=== PATIENT | male | born 1930 | race Caucasian/White ===

== ENCOUNTER 2020-02-12 17:03 | Inpatient (IN) | payer MEDICARE, BC ==
[~2020-02-12] VITALS: Ht 167.6 cm; Wt 62.1 kg
[2020-02-12] MEDS ORDERED: DEXAMETHASONE SOD PHOSPHATE 4 MG INJ IV ONE (17:30)
[2020-02-12] MEDS ORDERED: CEFTRIAXONE 1 G in IV DEXTROSE 5% 50 ML IV ONE (17:45)
[2020-02-12] MEDS ORDERED: AZITHROMYCIN IV 500 MG in IV DEXTROSE 5% 250 ML IV ONE (17:45)
[2020-02-12 18:10] LABS: CREATININE 1.1 mg/dL (0.6-1.3); POTASSIUM 4.3 mmol/L (3.5-5.1)
--- NOTE | 2020-02-12 18:13 | NUR ---
PT [facility] ROOM #1B. DR GRIFFITH EVALUATED THE PT.
[2020-02-12 18:14] LABS: BASOPHILS % (AUTO) 0.1 % (0.0-2.0); EOSINOPHILS % (AUTO) 0.1 % (0.0-7.0); HEMATOCRIT 35.4 % (36.7-47.1); LYMPHOCYTES # (AUTO) 0.3 K/uL (20.0-40.0); LYMPHOCYTES % (AUTO) 4.3 % (20.5-51.5); MEAN CORPUSCULAR HEMOGLOBIN 30.5 uug (23.8-33.4); MEAN CORPUSCULAR HGB CONC 34 g/dL (32.5-36.3); MEAN CORPUSCULAR VOLUME 89.8 fL (73.0-96.2); MONOCYTES # (AUTO) 0.2 K/uL (2.0-10.0); NEUTROPHILS # (AUTO) 7.6 K/uL (1.8-8.9); NEUTROPHILS % (AUTO) 93.5 % (38.5-71.5); PLATELET COUNT (AUTO) 82 K/uL (152-348); RED BLOOD CELL COUNT(AUTO) 3.94 MIL/uL (4.06-5.63); WHITE BLOOD COUNT (AUTO) 8.2 K/uL (3.6-10.2)
[2020-02-12 18:28] LABS: BILIRUBIN,TOTAL 1.1 mg/dL (0.2-1.0); TOTAL PROTEIN, SERUM 6.6 g/dL (6.4-8.2)
[2020-02-12] MEDS ORDERED: CEFTRIAXONE /D5W 50ML IVPB **ER PYXIS IV ONE (18:37)
[2020-02-12] MEDS ORDERED: DEXAMETHASONE SOD PHOSPHATE 10 MG INJ ONE (18:37)
--- NOTE | 2020-02-12 19:30 | NUR ---
recieved patient in shift change from Anibal SINGH
[2020-02-12] MEDS ORDERED: AZITHROMYCIN 500MG/ D5W 250ML IVPB **ER PYXIS ONLY IV ONE (19:45)
[2020-02-12 22:57] LABS: BAND % (MANUAL) 2 % (0-10); LYMPHOCYTES % (MANUAL) 4 % (20-40); MONOCYTES % (MANUAL) 3 % (2-10); NEUTROPHILS % (MANUAL) 91 % (42-75)
--- NOTE | 2020-02-13 | NUR ---
NO signs of acute distress noted, patient noted on 4 liters nasal cannula saturating at 92%
--- NOTE | 2020-02-13 05:11 | NUR ---
Patient noted resting at this time, all needs met
--- NOTE | 2020-02-13 08:00 | NUR ---
Pt eating breakfast, NAD noted. Pending tele admission when bed available.
[2020-02-13] MEDS ORDERED: ALBUTEROL SULFATE 8 GM HFA.AER.AD IH PRN (09:00)
[2020-02-13] MEDS ORDERED: MORPHINE SULFATE 2 MG/1 ML DISP.SYRIN IV PRN (09:00)
[2020-02-13] MEDS ORDERED: ENOXAPARIN SODIUM 40 MG/0.4 ML DISP.SYRIN SQ SCH (09:00)
[2020-02-13] MEDS ORDERED: ONDANSETRON 4 MG/2 ML VIAL IV PRN (09:00)
[2020-02-13] MEDS ORDERED: DEXAMETHASONE SOD PHOSPHATE 10 MG INJ ONE (09:24)
[2020-02-13] MEDS ORDERED: CEFTRIAXONE /D5W 50ML IVPB **ER PYXIS IV ONE (09:24)
[2020-02-13] MEDS ORDERED: AZITHROMYCIN 500MG/ D5W 250ML IVPB **ER PYXIS ONLY IV ONE (09:24)
--- NOTE | 2020-02-13 10:00 | NUR ---
emar showed Rocephin 1mg IV, Zithromax 500mg IV, Decadron 6mg IV and Lovenox 40mg sq due at 0900. Decadron adm at 0900 Lovenox adm at 0900 Rocephin 1gm: started at 0900 via saline lock Rt upper arm and completed at 0930. Zithromax 500mg IV started at 0900 via saline lock Rt upper arm. When I came back to nursing station to chart the meds, they were not on the emar. Spoke to Sue in pharmacy who stated she had verified the meds and changed the times.
--- NOTE | 2020-02-13 12:00 | NUR ---
Pt eating lunch, NAD noted.
[2020-02-13 13:14] LABS: BASOPHILS # (AUTO) 0.1 K/uL (0.0-8.0); BASOPHILS % (AUTO) 1.2 % (0.0-2.0); EOSINOPHILS % (AUTO) 0.1 % (0.0-7.0); HEMATOCRIT 35.4 % (36.7-47.1); LYMPHOCYTES # (AUTO) 0.5 K/uL (20.0-40.0); LYMPHOCYTES % (AUTO) 4.3 % (20.5-51.5); MEAN CORPUSCULAR HEMOGLOBIN 30.4 uug (23.8-33.4); MEAN CORPUSCULAR HGB CONC 34 g/dL (32.5-36.3); MEAN CORPUSCULAR VOLUME 89.9 fL (73.0-96.2); MONOCYTES # (AUTO) 0.6 K/uL (2.0-10.0); MONOCYTES % (AUTO) 4.5 % (0.0-11.0); NEUTROPHILS # (AUTO) 11.1 K/uL (1.8-8.9); NEUTROPHILS % (AUTO) 89.9 % (38.5-71.5); PLATELET COUNT (AUTO) 96 K/uL (152-348); RED BLOOD CELL COUNT(AUTO) 3.94 MIL/uL (4.06-5.63); WHITE BLOOD COUNT (AUTO) 12.3 K/uL (3.6-10.2)
[2020-02-13 13:18] LABS: POTASSIUM 4.1 mmol/L (3.5-5.1)
[2020-02-13 13:27] LABS: THYROID STIMULATING HORMONE 0.785 mIU/mL (0.358-3.740)
[2020-02-13 13:55] LABS: BILIRUBIN,TOTAL 0.6 mg/dL (0.2-1.0); PHOSPHOROUS 2.4 mg/dL (2.5-4.9)
[2020-02-13 14:07] LABS: TOTAL PROTEIN, SERUM 6.5 g/dL (6.4-8.2)
[2020-02-13] MEDS ORDERED: NEUTRA PHOS PACKET PO ONE (17:00)
[2020-02-13] MEDS ORDERED: DEXAMETHASONE SOD PHOSPHATE 10 MG INJ IV SCH (17:00)
[2020-02-13] MEDS ORDERED: IOHEXOL 350 100 ML INFUS..BTL ONE (19:41)
[2020-02-13] MEDS ORDERED: IV NORMAL SALINE 250 ML IV ONE (19:41)
[2020-02-13] MEDS ORDERED: SWABABLE VALVE TRANSFER SET EA MC ONE (19:41)
[2020-02-13] MEDS ORDERED: REMDESIVIR (CHARGED) 200 MG in IV NORMAL SALINE 210 ML IV ONE (20:00)
[2020-02-13] MEDS ORDERED: DOCUSATE SODIUM 250 MG CAPSULE PO SCH (21:00)
[2020-02-13] MEDS ORDERED: ENOXAPARIN SODIUM 60 MG/0.6 ML DISP.SYRIN SQ SCH (21:00)
[2020-02-13] MEDS: DOCUSATE SODIUM 100 MG CAPSULE PO SCH (21:55)
[2020-02-13] MEDS ORDERED: DOCUSATE SODIUM 100 MG CAPSULE PO ONE (21:58)
[2020-02-13] MEDS ORDERED: ENOXAPARIN SODIUM 60 MG/0.6 ML DISP.SYRIN SQ ONE (21:58)
--- NOTE | 2020-02-13 22:28 | NUR ---
Eliza Gamez paged at this time for new orders
[2020-02-13] MEDS ORDERED: HEPARIN/D5W DRIP 500 ML IV PRN (22:45)
--- NOTE | 2020-02-13 22:53 | NUR ---
POsitive covid status unverified a this time, remdesivir held at this time
[2020-02-13] MEDS ORDERED: HEPARIN/D5W DRIP 500 ML ONE (23:02)
[2020-02-13] MEDS ORDERED: HEPARIN SODIUM,PORCINE 5,000 UNITS/ML VIAL ONE (23:35)
--- NOTE | 2020-02-13 23:40 | NUR ---
Heparin drip started at this time per SALES REPRESENTATIVE [employer] SERVICE elma Montalvo orders for right sided pulmonary emboli patient's weight noted at 63 Kg, 65Kg protocol followed patient bolused 5000 units of heparin, heparin protocol intiated at 1150 units/hr
[2020-02-14 00:18] LABS: LYMPHOCYTES % (MANUAL) 5 % (20-40); MONOCYTES % (MANUAL) 5 % (2-10); NEUTROPHILS % (MANUAL) 90 % (42-75)
--- NOTE | 2020-02-14 01:32 | NUR ---
PTT lab order placed for 02/14/2020 at 0512
--- NOTE | 2020-02-14 05:40 | NUR ---
Lab noted drawing blood at this time
[2020-02-14 05:47] LABS: BASOPHILS # (AUTO) 0.1 K/uL (0.0-8.0); BASOPHILS % (AUTO) 0.5 % (0.0-2.0); HEMATOCRIT 35.5 % (36.7-47.1); HEMOGLOBIN 12.2 g/dL (12.5-16.3); LYMPHOCYTES # (AUTO) 0.7 K/uL (20.0-40.0); LYMPHOCYTES % (AUTO) 4.7 % (20.5-51.5); MEAN CORPUSCULAR HEMOGLOBIN 30.7 uug (23.8-33.4); MEAN CORPUSCULAR HGB CONC 34 g/dL (32.5-36.3); MEAN CORPUSCULAR VOLUME 89.4 fL (73.0-96.2); MONOCYTES # (AUTO) 0.8 K/uL (2.0-10.0); NEUTROPHILS # (AUTO) 13.4 K/uL (1.8-8.9); NEUTROPHILS % (AUTO) 89.8 % (38.5-71.5); PLATELET COUNT (AUTO) 128 K/uL (152-348); RED BLOOD CELL COUNT(AUTO) 3.97 MIL/uL (4.06-5.63); WHITE BLOOD COUNT (AUTO) 14.9 K/uL (3.6-10.2)
[2020-02-14 06:02] LABS: BILIRUBIN,DIRECT 0.2 mg/dL (0.0-0.2); BILIRUBIN,TOTAL 0.7 mg/dL (0.2-1.0); TOTAL PROTEIN, SERUM 6.3 g/dL (6.4-8.2)
[2020-02-14 06:35] LABS: CREATININE 1.2 mg/dL (0.6-1.3); MAGNESIUM 1.9 mg/dL (1.8-2.4); PHOSPHOROUS 3.9 mg/dL (2.5-4.9); POTASSIUM 4.4 mmol/L (3.5-5.1)
--- NOTE | 2020-02-14 06:35 | NUR ---
Patient's PTT noted at 126.1 Per heparin dosing protocol for none acute coronary syndromes Heparin stopped at 0630 and will be resumed at 0730 and decrease drip by 3 units/Kg/h Will endorse orders to dayshift RN
--- NOTE | 2020-02-14 07:30 | NUR ---
Heparin restarted at 945 Units/hr (63kg x 15 Units) at 0730
[2020-02-14] MEDS ORDERED: PANTOPRAZOLE SODIUM 40 MG TABLET.DR PO ONE (07:56)
[2020-02-14] MEDS ORDERED: DEXAMETHASONE SOD PHOSPHATE 4 MG INJ ONE (07:56)
[2020-02-14] MEDS ORDERED: DOCUSATE SODIUM 100 MG CAPSULE PO ONE (07:56)
--- NOTE | 2020-02-14 09:00 | NUR ---
Pt given Breakfast tray. No current complaints, no distress noted. Pt desaturates to 60'2-70's when he pulls mask off (eg eating), but climbs back to mid 90's when replaced.
[2020-02-14] MEDS ORDERED: AZITHROMYCIN 500MG/ D5W 250ML IVPB **ER PYXIS ONLY IV ONE (09:07)
[2020-02-14] MEDS ORDERED: CEFTRIAXONE /D5W 50ML IVPB **ER PYXIS IV ONE (09:08)
[2020-02-14] MEDS: PANTOPRAZOLE SODIUM 40 MG TABLET.DR PO SCH (09:10)
[2020-02-14] MEDS: DEXAMETHASONE SOD PHOSPHATE 10 MG INJ IV SCH (09:25)
[2020-02-14] MEDS: CEFTRIAXONE 1 G in IV DEXTROSE 5% 50 ML IV SCH (09:25)
[2020-02-14] MEDS: DOCUSATE SODIUM 100 MG CAPSULE PO SCH (09:27)
[2020-02-14 09:44] LABS: ABG BASE EXCESS -2.1 mmol/L; ABG HCO3 20.4 mmol/L; ABG PCO2 28.1 mmHg (35.0-45.0); ABG PH 7.478 (7.350-7.450); ABG PO2 72.6 mmHg (75.0-100.0); ABG SITE RIGHT RADIAL; ABG TOTAL HEMOGLOBIN 11.9 G/dL (13.5-18.0); COHb 0.9 % (0.5-1.5); MetHb 0.2 % (0.0-1.5); O2Hb 93.9 % (94.0-97.0)
--- NOTE | 2020-02-14 09:45 | NUR ---
Son, Terry, wants attending MD/SALES CENTER ASSOCIATE to call him at [phone].
[2020-02-14] MEDS: AZITHROMYCIN IV 500 MG in IV DEXTROSE 5% 250 ML IV SCH (10:16)
--- NOTE | 2020-02-14 11:55 | NUR ---
Heparin Drip Stopped, per LION HUNTER.
--- NOTE | 2020-02-14 16:00 | NUR ---
Pt resting in bed, no complaints, no distress noted.
[2020-02-14] MEDS ORDERED: REMDESIVIR (CHARGED) 100 MG in IV NORMAL SALINE 230 ML IV SCH (18:00)
--- NOTE | 2020-02-14 19:14 | NUR ---
recieved patient in shift report
[2020-02-14] MEDS ORDERED: ENOXAPARIN SODIUM 60 MG/0.6 ML DISP.SYRIN SQ ONE (19:27)
[2020-02-14] MEDS ORDERED: REMDESIVIR (CHARGED) 100 MG in IV NORMAL SALINE 100 ML IV ONE ×2 (20:00→21:00)
[2020-02-14] MEDS ORDERED: REMDESIVIR (CHARGED) 100 MG in IV NORMAL SALINE 100 ML IV SCH (20:00)
[2020-02-14] MEDS: ENOXAPARIN SODIUM 60 MG/0.6 ML DISP.SYRIN SQ SCH (20:01)
--- NOTE | 2020-02-15 00:07 | NUR ---
Patient noted resting in bed, vitals WNLs at this time
[2020-02-15 06:33] LABS: BASOPHILS % (AUTO) 0.3 % (0.0-2.0); EOSINOPHILS % (AUTO) 0.1 % (0.0-7.0); HEMATOCRIT 38.1 % (36.7-47.1); HEMOGLOBIN 13.4 g/dL (12.5-16.3); LYMPHOCYTES # (AUTO) 0.5 K/uL (20.0-40.0); LYMPHOCYTES % (AUTO) 5.8 % (20.5-51.5); MEAN CORPUSCULAR HEMOGLOBIN 33.6 uug (23.8-33.4); MEAN CORPUSCULAR HGB CONC 35 g/dL (32.5-36.3); MEAN CORPUSCULAR VOLUME 95.7 fL (73.0-96.2); MONOCYTES # (AUTO) 0.4 K/uL (2.0-10.0); NEUTROPHILS # (AUTO) 7.6 K/uL (1.8-8.9); NEUTROPHILS % (AUTO) 88.8 % (38.5-71.5); PLATELET COUNT (AUTO) 135 K/uL (152-348); RED BLOOD CELL COUNT(AUTO) 3.98 MIL/uL (4.06-5.63); WHITE BLOOD COUNT (AUTO) 8.5 K/uL (3.6-10.2)
[2020-02-15 06:44] LABS: BILIRUBIN,DIRECT 0.3 mg/dL (0.0-0.2); BILIRUBIN,TOTAL 0.7 mg/dL (0.2-1.0); CREATININE 1.2 mg/dL (0.6-1.3); MAGNESIUM 1.8 mg/dL (1.8-2.4); PHOSPHOROUS 3.5 mg/dL (2.5-4.9); POTASSIUM 5.4 mmol/L (3.5-5.1); TOTAL PROTEIN, SERUM 6.6 g/dL (6.4-8.2)
[2020-02-15] MEDS ORDERED: PANTOPRAZOLE SODIUM 40 MG TABLET.DR PO ONE (07:26)
[2020-02-15] MEDS: PANTOPRAZOLE SODIUM 40 MG TABLET.DR PO SCH (07:34)
[2020-02-15] MEDS: ENOXAPARIN SODIUM 60 MG/0.6 ML DISP.SYRIN SQ SCH ×2 (09:29→21:07)
[2020-02-15] MEDS: CEFTRIAXONE 1 G in IV DEXTROSE 5% 50 ML IV SCH (09:30)
[2020-02-15] MEDS: AZITHROMYCIN IV 500 MG in IV DEXTROSE 5% 250 ML IV SCH (09:30)
[2020-02-15] MEDS: DEXAMETHASONE SOD PHOSPHATE 10 MG INJ IV SCH (09:30)
[2020-02-15] MEDS ORDERED: SODIUM POLYSTYRENE SULFONATE 15 G/60 ML LIQUID UDC ONE (17:45)
[2020-02-15] MEDS ORDERED: SODIUM POLYSTYRENE SULFONATE 15 G/60 ML LIQUID UDC PO ONE (17:45)
[2020-02-15] MEDS ORDERED: ONDANSETRON 4 MG/2 ML VIAL ONE (17:48)
[2020-02-15] MEDS: REMDESIVIR (CHARGED) 100 MG in IV NORMAL SALINE 100 ML IV SCH (18:18)
--- NOTE | 2020-02-15 19:12 | NUR ---
Received report from SAMANTHA Barnett for continuity of care.
[2020-02-15] MEDS ORDERED: NOREPINEPHRINE BITARTRATE 8 MG in IV DEXTROSE 5% 250 ML IV ONE ×2 (20:30→20:45)
--- NOTE | 2020-02-15 20:50 | NUR ---
Levophed 8mg IV drip started per protocol, patients blood pressure tolerating medication. Will continue to monitor.
[2020-02-15] MEDS ORDERED: ENOXAPARIN SODIUM 60 MG/0.6 ML DISP.SYRIN SQ ONE (20:54)
[2020-02-15] MEDS: DOCUSATE SODIUM 100 MG CAPSULE PO SCH (21:00)
[2020-02-16] MEDS: DOXYCYCLINE HYCLATE IV 100 MG in IV DEXTROSE 5% 100 ML IV SCH ×2
--- NOTE | 2020-02-16 00:20 | NUR ---
Patient repositioned on right side to promote oxygenation. Patient tolerating well. Patient remains on high-flow 40L NC; FiO2 100% + NRB @ 15L. Will continue to monitor
[2020-02-16] MEDS ORDERED: DOCUSATE SODIUM 100 MG CAPSULE PO ONE ×2 (00:38→20:19)
[2020-02-16 06:09] LABS: BASOPHILS % (AUTO) 0.1 % (0.0-2.0); HEMATOCRIT 33.4 % (36.7-47.1); HEMOGLOBIN 11.8 g/dL (12.5-16.3); LYMPHOCYTES # (AUTO) 0.6 K/uL (20.0-40.0); MEAN CORPUSCULAR HEMOGLOBIN 32.5 uug (23.8-33.4); MEAN CORPUSCULAR HGB CONC 35 g/dL (32.5-36.3); MEAN CORPUSCULAR VOLUME 91.6 fL (73.0-96.2); MONOCYTES # (AUTO) 0.7 K/uL (2.0-10.0); MONOCYTES % (AUTO) 5.6 % (0.0-11.0); NEUTROPHILS # (AUTO) 10.8 K/uL (1.8-8.9); NEUTROPHILS % (AUTO) 89.3 % (38.5-71.5); PLATELET COUNT (AUTO) 175 K/uL (152-348); RED BLOOD CELL COUNT(AUTO) 3.64 MIL/uL (4.06-5.63); WHITE BLOOD COUNT (AUTO) 12.1 K/uL (3.6-10.2)
[2020-02-16 06:11] LABS: BILIRUBIN,DIRECT 0.3 mg/dL (0.0-0.2); BILIRUBIN,TOTAL 0.7 mg/dL (0.2-1.0); CREATININE 1.2 mg/dL (0.6-1.3); POTASSIUM 3.8 mmol/L (3.5-5.1); TOTAL PROTEIN, SERUM 5.9 g/dL (6.4-8.2)
[2020-02-16] MEDS: PANTOPRAZOLE SODIUM 40 MG TABLET.DR PO SCH (07:00)
[2020-02-16] MEDS ORDERED: PANTOPRAZOLE SODIUM 40 MG TABLET.DR PO ONE (08:00)
[2020-02-16] MEDS ORDERED: DEXAMETHASONE SOD PHOSPHATE 10 MG INJ ONE (08:00)
[2020-02-16] MEDS ORDERED: ENOXAPARIN SODIUM 60 MG/0.6 ML DISP.SYRIN SQ ONE ×2 (08:01→20:18)
[2020-02-16] MEDS ORDERED: AZITHROMYCIN 500MG/ D5W 250ML IVPB **ER PYXIS ONLY IV ONE (08:02)
[2020-02-16] MEDS ORDERED: CEFTRIAXONE /D5W 50ML IVPB **ER PYXIS IV ONE (08:11)
[2020-02-16] MEDS: CEFTRIAXONE 1 G in IV DEXTROSE 5% 50 ML IV SCH (09:09)
[2020-02-16] MEDS: DEXAMETHASONE SOD PHOSPHATE 10 MG INJ IV SCH (09:09)
[2020-02-16] MEDS: ENOXAPARIN SODIUM 60 MG/0.6 ML DISP.SYRIN SQ SCH ×2 (09:11→21:00)
[2020-02-16] MEDS: AZITHROMYCIN IV 500 MG in IV DEXTROSE 5% 250 ML IV SCH (09:30)
[2020-02-16] MEDS: REMDESIVIR (CHARGED) 100 MG in IV NORMAL SALINE 100 ML IV SCH (18:30)
--- NOTE | 2020-02-16 18:54 | NUR ---
report given to evaluation analyst SAMANTHA fuchs.
--- NOTE | 2020-02-16 20:05 | NUR ---
Per Eunice Morejon, infectious disease WAITER AND CASHIER, she ordered to have a moncada catheter inserted due to patient being on vasopressors so that I&O can be monitored.
[2020-02-16] MEDS ORDERED: LIDOCAINE 2% (UROJET) 10 ML JELLY MM ONE ×2 (20:45→20:54)
[2020-02-16] MEDS: DOCUSATE SODIUM 100 MG CAPSULE PO SCH (21:00)
[2020-02-16] MEDS ORDERED: ACETAMINOPHEN 325 MG TABLET ONE (21:18)
[2020-02-16] MEDS ORDERED: diphenhydrAMINE 50 MG/1 ML VIAL ONE (21:19)
[2020-02-16] MEDS ORDERED: DOXYCYCLINE HYCLATE 100 MG INJ IV ONE (21:19)
[2020-02-16] MEDS ORDERED: CEFEPIME HCL 1 G VIAL ONE (21:20)
[2020-02-16] MEDS ORDERED: TOCILIZUMAB 400 MG in IV NORMAL SALINE 80 ML IV ONE (22:00)
[2020-02-16] MEDS ORDERED: ACETAMINOPHEN 325 MG TABLET PO ONE (22:00)
[2020-02-16] MEDS ORDERED: diphenhydrAMINE 50 MG/1 ML VIAL IV ONE (22:00)
[2020-02-16] MEDS: CEFEPIME HCL 1 G in IV DEXTROSE 5% 50 ML IV SCH (22:38)
[2020-02-17] VITALS (11 sets, daily range): BP systolic 98–119; BP diastolic 46–64
[2020-02-17] MEDS ORDERED: CEFEPIME HCL 1 G VIAL ONE (05:40)
[2020-02-17] MEDS: CEFEPIME HCL 1 G in IV DEXTROSE 5% 50 ML IV SCH ×3 (05:58→22:27)
[2020-02-17 06:03] LABS: BASOPHILS % (AUTO) 0.1 % (0.0-2.0); EOSINOPHILS % (AUTO) 0.1 % (0.0-7.0); HEMATOCRIT 31.5 % (36.7-47.1); HEMOGLOBIN 10.9 g/dL (12.5-16.3); LYMPHOCYTES # (AUTO) 0.5 K/uL (20.0-40.0); LYMPHOCYTES % (AUTO) 5.6 % (20.5-51.5); MEAN CORPUSCULAR HEMOGLOBIN 30.8 uug (23.8-33.4); MEAN CORPUSCULAR HGB CONC 35 g/dL (32.5-36.3); MEAN CORPUSCULAR VOLUME 88.7 fL (73.0-96.2); MONOCYTES # (AUTO) 0.3 K/uL (2.0-10.0); MONOCYTES % (AUTO) 3.8 % (0.0-11.0); NEUTROPHILS # (AUTO) 8.2 K/uL (1.8-8.9); NEUTROPHILS % (AUTO) 90.4 % (38.5-71.5); PLATELET COUNT (AUTO) 153 K/uL (152-348); RED BLOOD CELL COUNT(AUTO) 3.54 MIL/uL (4.06-5.63); WHITE BLOOD COUNT (AUTO) 9.1 K/uL (3.6-10.2)
[2020-02-17 06:16] LABS: BILIRUBIN,DIRECT 0.2 mg/dL (0.0-0.2); BILIRUBIN,TOTAL 0.7 mg/dL (0.2-1.0); CREATININE 1.1 mg/dL (0.6-1.3); POTASSIUM 3.9 mmol/L (3.5-5.1); TOTAL PROTEIN, SERUM 5.4 g/dL (6.4-8.2)
--- NOTE | 2020-02-17 10:15 | NUR ---
STOPPED Levophed at 1115
--- NOTE | 2020-02-17 10:20 | NUR ---
Called report to CCU.
[2020-02-17] MEDS ORDERED: DEXAMETHASONE SOD PHOSPHATE 4 MG INJ ONE (10:26)
[2020-02-17] MEDS ORDERED: ENOXAPARIN SODIUM 60 MG/0.6 ML DISP.SYRIN SQ ONE (10:26)
[2020-02-17] MEDS ORDERED: DOXYCYCLINE HYCLATE 100 MG INJ IV ONE (10:27)
[2020-02-17] MEDS ORDERED: PANTOPRAZOLE SODIUM 40 MG TABLET.DR PO ONE (10:27)
[2020-02-17] MEDS: DEXAMETHASONE SOD PHOSPHATE 10 MG INJ IV SCH (10:40)
[2020-02-17] MEDS: DOXYCYCLINE HYCLATE IV 100 MG in IV DEXTROSE 5% 100 ML IV SCH ×2 (10:40→21:20)
[2020-02-17] MEDS: ENOXAPARIN SODIUM 60 MG/0.6 ML DISP.SYRIN SQ SCH ×2 (10:45→21:20)
[2020-02-17] MEDS: PANTOPRAZOLE SODIUM 40 MG TABLET.DR PO SCH (10:50)
--- NOTE | 2020-02-17 16:16 | NUR ---
1130 PT RECEIVED ON 100% NRB MASK 15 L. BIPAP ON STAND BY. PT TOLERATING NRB FINE WITHOUT RESPIRATORY DISTRESS. SPO2 98% 1330 PT PLACED ON 10L SIMPLE MASK. SPO2 95% SHOWING NO SIGNS OF RESP DISTRESS. 1530 PT PLACED ON 6L NASAL CANULA WITH BUBBLE HUMIDIFIER. SPO2 WITHIN NORMAL LIMITS. PT COMFORTABLE SHOWING NO SIGNS OF RESP DISTRESS. WILL CONTINUE TO MONITOR
[2020-02-17] MEDS: REMDESIVIR (CHARGED) 100 MG in IV NORMAL SALINE 100 ML IV SCH (18:49)
--- NOTE | 2020-02-17 20:00 | NUR ---
RECEIVED PT ALERT & ORIENTED X3, UNDERSTAND & SPEAKS CAMBOD[place] MINIMALLY. ON O2 @ 6L NC W/ HUMIDIFIER. IVF NS @ 10CC/HR ON RFA. HEPLOCK INTACT & PATENT ON LFA. NOT IN ANY DISTRESS.
[2020-02-17] MEDS: DOCUSATE SODIUM 100 MG CAPSULE PO SCH (21:20)
[2020-02-18] VITALS (20 sets, daily range): BP systolic 98–122; BP diastolic 51–80
--- NOTE | 2020-02-18 | NUR ---
PT. IS DESATURATING, PLACED ON 10 SIMPLE MASK W/ O2 SAT OF 88%.
--- NOTE | 2020-02-18 02:00 | NUR ---
PLACED PT. ON BIPAP 18/10, RATE-18, FIO2-100% W/ O2 SAT OF 94%.
[2020-02-18 05:23] LABS: BASOPHILS # (AUTO) 0.1 K/uL (0.0-8.0); BASOPHILS % (AUTO) 0.7 % (0.0-2.0); HEMATOCRIT 33.4 % (36.7-47.1); HEMOGLOBIN 11.5 g/dL (12.5-16.3); LYMPHOCYTES # (AUTO) 0.4 K/uL (20.0-40.0); MEAN CORPUSCULAR HEMOGLOBIN 30.4 uug (23.8-33.4); MEAN CORPUSCULAR HGB CONC 34 g/dL (32.5-36.3); MEAN CORPUSCULAR VOLUME 88.4 fL (73.0-96.2); MONOCYTES # (AUTO) 0.4 K/uL (2.0-10.0); NEUTROPHILS # (AUTO) 7.1 K/uL (1.8-8.9); NEUTROPHILS % (AUTO) 89.3 % (38.5-71.5); PLATELET COUNT (AUTO) 167 K/uL (152-348); RED BLOOD CELL COUNT(AUTO) 3.78 MIL/uL (4.06-5.63)
[2020-02-18] MEDS: CEFEPIME HCL 1 G in IV DEXTROSE 5% 50 ML IV SCH ×3 (05:29→22:00)
[2020-02-18 05:32] LABS: CREATININE 1.1 mg/dL (0.6-1.3); POTASSIUM 4.3 mmol/L (3.5-5.1)
--- NOTE | 2020-02-18 06:00 | NUR ---
pt. swallow without difficulty. remains on bipap.
[2020-02-18] MEDS: PANTOPRAZOLE SODIUM 40 MG TABLET.DR PO SCH (06:40)
[2020-02-18] MEDS: DEXAMETHASONE SOD PHOSPHATE 10 MG INJ IV SCH (08:38)
[2020-02-18] MEDS: ENOXAPARIN SODIUM 60 MG/0.6 ML DISP.SYRIN SQ SCH ×2 (08:39→21:27)
[2020-02-18] MEDS: DOXYCYCLINE HYCLATE IV 100 MG in IV DEXTROSE 5% 100 ML IV SCH ×2 (08:43→21:23)
[2020-02-18 13:26] LABS: BILIRUBIN,DIRECT 0.2 mg/dL (0.0-0.2); BILIRUBIN,TOTAL 0.6 mg/dL (0.2-1.0); TOTAL PROTEIN, SERUM 5.6 g/dL (6.4-8.2)
[2020-02-18] MEDS: REMDESIVIR (CHARGED) 100 MG in IV NORMAL SALINE 100 ML IV SCH (18:14)
--- NOTE | 2020-02-18 19:30 | NUR ---
Report received. Patient admitted 02/12/2020 DX: COVID-19. On isolation. On continuous 100% non rebreather mask plus 5 L NC O2. Appears comfortable. O2 saturations good. Assessment done; see flow sheet for details. Addendum: 02/19/20 at 0449 by MIMI COTA RN Amended: Links added. Addendum: 02/19/20 at 0451 by MIMI COTA RN Amended: Links added.
[2020-02-18] MEDS: DOCUSATE SODIUM 100 MG CAPSULE PO SCH (21:25)
[2020-02-19] VITALS (23 sets, daily range): BP systolic 90–125; BP diastolic 43–83
--- NOTE | 2020-02-19 00:30 | NUR ---
Placed on BIPAP settings as follows: I/E=18/10 rate=18, JNH3=220%. Monitored closely Addendum: 02/19/20 at 0451 by MIMI COTA RN Amended: Links added.
--- NOTE | 2020-02-19 03:00 | NUR ---
Patient mildly restless during care. Coughing non productively, attempting to remove BIPAP mask and desaturates easily. Refusing BIPAP despite advice. RT at bedside. Placed back on 100% nonrebreather mask + 5 L NC O2. Monitored closely.
[2020-02-19] MEDS: IV NORMAL SALINE 250 ML IV PRN (04:00)
[2020-02-19] MEDS ORDERED: Z GUARD REMEDY PASTE 57 GM TUBE TOP PRN (04:15)
[2020-02-19] MEDS: CEFEPIME HCL 1 G in IV DEXTROSE 5% 50 ML IV SCH ×3 (05:26→22:07)
--- NOTE | 2020-02-19 05:30 | NUR ---
Patient removing O2 mask, desaturating. Advised appropriately but patient got very agitated and combative. RT and 2 RNs at bedside. Bilateral soft wrist restraints applied. Stayed with patient; O2 sat improved. Addendum: 02/19/20 at 0603 by MIMI COTA RN Amended: Links added.
[2020-02-19] MEDS: PANTOPRAZOLE SODIUM 40 MG TABLET.DR PO SCH (06:03)
[2020-02-19 06:14] LABS: BASOPHILS % (AUTO) 0.2 % (0.0-2.0); EOSINOPHILS # (AUTO) 0.1 K/uL (0.0-0.7); HEMATOCRIT 38.3 % (36.7-47.1); HEMOGLOBIN 12.7 g/dL (12.5-16.3); LYMPHOCYTES # (AUTO) 0.8 K/uL (20.0-40.0); LYMPHOCYTES % (AUTO) 9.7 % (20.5-51.5); MEAN CORPUSCULAR HEMOGLOBIN 29.8 uug (23.8-33.4); MEAN CORPUSCULAR HGB CONC 33 g/dL (32.5-36.3); MEAN CORPUSCULAR VOLUME 89.7 fL (73.0-96.2); MONOCYTES # (AUTO) 0.5 K/uL (2.0-10.0); NEUTROPHILS # (AUTO) 7.1 K/uL (1.8-8.9); NEUTROPHILS % (AUTO) 83.1 % (38.5-71.5); PLATELET COUNT (AUTO) 185 K/uL (152-348); RED BLOOD CELL COUNT(AUTO) 4.27 MIL/uL (4.06-5.63); WHITE BLOOD COUNT (AUTO) 8.6 K/uL (3.6-10.2)
[2020-02-19 06:28] LABS: BILIRUBIN,TOTAL 0.8 mg/dL (0.2-1.0); CREATININE 1.1 mg/dL (0.6-1.3); MAGNESIUM 2.1 mg/dL (1.8-2.4); PHOSPHOROUS 2.6 mg/dL (2.5-4.9)
--- NOTE | 2020-02-19 07:25 | NUR ---
Received report from plate put in worker nurse, patient in bed asleep, no distress noted at this time. Patient has nasal cannula 5L and NRB mask 15L 100%. Kelley intact and draining, IV patient. Sinus rhythm on the monitor, oxygen saturation WNL except when taking it off briefly patient desaturates to 77%, education provided to patient and placed back on nonrebreather. No distress noted at this time, will continue to monitor.
[2020-02-19] MEDS: Z GUARD REMEDY PASTE 57 GM TUBE TOP SCH ×2 (08:53→20:18)
[2020-02-19] MEDS: DOXYCYCLINE HYCLATE IV 100 MG in IV DEXTROSE 5% 100 ML IV SCH ×2 (08:53→20:12)
[2020-02-19] MEDS: DEXAMETHASONE SOD PHOSPHATE 10 MG INJ IV SCH (08:53)
[2020-02-19] MEDS: ENOXAPARIN SODIUM 60 MG/0.6 ML DISP.SYRIN SQ SCH ×2 (08:55→20:19)
--- NOTE | 2020-02-19 18:26 | NUR ---
Patient continues to be on 15L nonrebreather mask and 5L nasal cannula. Periods of desaturation down to 74% when eating but returns to 99% when mask is on. Hemodynamically stable throughout shift and afebrile. Patient appears to be in stable condition without distress, all needs met. Bed in low position, side rais up x2. Call light in reach. Education provided on removing mask.
--- NOTE | 2020-02-19 19:30 | NUR ---
Report received. Patient on COVID-19 isolation, AA, watching TV. NAD noted. On continuous 100% nonrebreather mask and 5 L NC O2. O2 saturations 91-99%. Assessment done and documented. Addendum: 02/19/20 at 2147 by MIMI COTA RN Amended: Links added.
--- NOTE | 2020-02-19 20:00 | NUR ---
RFA IV leaking and reddened; dc'd. Saline lock LFA patent; dressing changed. Patient desaturates when taking off mask; advised appropriately. Verbalized understanding.
[2020-02-19] MEDS: DOCUSATE SODIUM 100 MG CAPSULE PO SCH (20:17)
[2020-02-20] VITALS (14 sets, daily range): BP systolic 101–123; BP diastolic 49–67
[2020-02-20] MEDS: IV NORMAL SALINE 250 ML IV PRN (00:25)
--- NOTE | 2020-02-20 02:30 | NUR ---
Patient awake. Am care rendered. Turned and repositioned; skin care provided. Patient cooperative, but desaturates easily with care and activity. Addendum: 02/20/20 at 0315 by MIMI COTA RN Amended: Links added.
[2020-02-20 05:16] LABS: BASOPHILS % (AUTO) 0.4 % (0.0-2.0); EOSINOPHILS # (AUTO) 0.1 K/uL (0.0-0.7); EOSINOPHILS % (AUTO) 1.8 % (0.0-7.0); HEMOGLOBIN 11.1 g/dL (12.5-16.3); LYMPHOCYTES # (AUTO) 0.5 K/uL (20.0-40.0); LYMPHOCYTES % (AUTO) 8.8 % (20.5-51.5); MEAN CORPUSCULAR HGB CONC 34 g/dL (32.5-36.3); MEAN CORPUSCULAR VOLUME 88.9 fL (73.0-96.2); MONOCYTES # (AUTO) 0.4 K/uL (2.0-10.0); MONOCYTES % (AUTO) 6.2 % (0.0-11.0); NEUTROPHILS % (AUTO) 82.8 % (38.5-71.5); PLATELET COUNT (AUTO) 115 K/uL (152-348); RED BLOOD CELL COUNT(AUTO) 3.71 MIL/uL (4.06-5.63)
[2020-02-20] MEDS: CEFEPIME HCL 1 G in IV DEXTROSE 5% 50 ML IV SCH ×3 (05:19→22:55)
[2020-02-20 05:32] LABS: CREATININE 1.1 mg/dL (0.6-1.3); MAGNESIUM 1.9 mg/dL (1.8-2.4); PHOSPHOROUS 2.4 mg/dL (2.5-4.9); POTASSIUM 4.2 mmol/L (3.5-5.1)
[2020-02-20] MEDS: PANTOPRAZOLE SODIUM 40 MG TABLET.DR PO SCH (06:19)
--- NOTE | 2020-02-20 06:43 | NUR ---
No neuro changes; remains on 100% non rebreather mask and 5 L NC O2. Still desaturates easily when off O2. COVID isolation maintained. Addendum: 02/20/20 at 0644 by MIMI COTA RN Amended: Links added.
[2020-02-20 07:53] LABS: ABG HCO3 24.1 mmol/L; ABG PCO2 37.4 mmHg (35.0-45.0); ABG PH 7.427 (7.350-7.450); ABG PO2 82.9 mmHg (75.0-100.0); ABG SITE RIGHT RADIAL; ABG TOTAL HEMOGLOBIN 11.5 G/dL (13.5-18.0); COHb 0.6 % (0.5-1.5); MetHb 0.2 % (0.0-1.5); O2Hb 95.6 % (94.0-97.0)
[2020-02-20] MEDS: Z GUARD REMEDY PASTE 57 GM TUBE TOP SCH ×2 (08:21→21:49)
[2020-02-20] MEDS: ENOXAPARIN SODIUM 60 MG/0.6 ML DISP.SYRIN SQ SCH ×2 (08:21→21:37)
[2020-02-20] MEDS: DOXYCYCLINE HYCLATE IV 100 MG in IV DEXTROSE 5% 100 ML IV SCH ×2 (08:22→21:16)
[2020-02-20] MEDS: DEXAMETHASONE SOD PHOSPHATE 10 MG INJ IV SCH (08:22)
[2020-02-20] MEDS ORDERED: NEUTRA PHOS PACKET PO ONE (10:00)
--- NOTE | 2020-02-20 10:08 | NUR ---
Attending Andrew Bryant in the unit to see and examine pt. report given. orders to continue with care plan received. Patient could be down-graded to telemetry.
[2020-02-20 11:06] LABS: CRYPTOCOCCUS AB, SERUM Negative (Negative)
--- NOTE | 2020-02-20 11:14 | NUR ---
PT RECEIVED ON 100% NRB MASK AWAKE ALERT AND RESPONSIVE. PT PLACED ON VAPOTHERM 100% 40 L TO IMPROVE OXYGENATION AND COMFORT. WILL CONTINUE TO MONITOR
--- NOTE | 2020-02-20 11:39 | NUR ---
Telephone report given to Flaco Larose. All information endorsed.
--- NOTE | 2020-02-20 13:54 | NUR ---
Patient picking machine operator helper by REleN. and RT. Iv line patent and currently running with antibiotic due at this time. All belongings taken by patient.
--- NOTE | 2020-02-20 14:00 | NUR ---
TRANSFERRED FROM CCU IN NO ACUTE DISTRESS. TAKEN TO RM 224 ORIENTED TO ROOM AND SURROUNDINGS. MIDLINE NURSE READY TO INSERT MIDLINE. A/O ABLE TO MAKE NEEDS KNOWN NO C/O DISTRESS NOTED
--- NOTE | 2020-02-20 20:18 | NUR ---
Patient in bed awake able to make needs known.No s/s of distress noted .On high flow oxygen 40 %.Saturating at 98 %.Denies pain.Midline on right upper arm patent and intact.Administered IV ATb as ordered tolerated well.Compliant with medication. Continue on covid for isolation.SAfety measures in place. Call light with in reach .will continue to monitor.VSS
[2020-02-20] MEDS: DOCUSATE SODIUM 100 MG CAPSULE PO SCH (21:17)
[2020-02-21 00:40] VITALS: BP 112/58
[2020-02-21 04:00] VITALS: BP 124/64
[2020-02-21] MEDS: CEFEPIME HCL 1 G in IV DEXTROSE 5% 50 ML IV SCH ×2 (05:01→13:47)
[2020-02-21] MEDS: PANTOPRAZOLE SODIUM 40 MG TABLET.DR PO SCH (06:07)
[2020-02-21 06:13] LABS: BASOPHILS % (AUTO) 0.1 % (0.0-2.0); EOSINOPHILS # (AUTO) 0.2 K/uL (0.0-0.7); EOSINOPHILS % (AUTO) 2.9 % (0.0-7.0); HEMATOCRIT 33.6 % (36.7-47.1); HEMOGLOBIN 11.6 g/dL (12.5-16.3); LYMPHOCYTES # (AUTO) 0.7 K/uL (20.0-40.0); MEAN CORPUSCULAR HEMOGLOBIN 30.6 uug (23.8-33.4); MEAN CORPUSCULAR HGB CONC 34 g/dL (32.5-36.3); MEAN CORPUSCULAR VOLUME 88.8 fL (73.0-96.2); MONOCYTES # (AUTO) 0.3 K/uL (2.0-10.0); NEUTROPHILS # (AUTO) 5.5 K/uL (1.8-8.9); PLATELET COUNT (AUTO) 114 K/uL (152-348); RED BLOOD CELL COUNT(AUTO) 3.78 MIL/uL (4.06-5.63); WHITE BLOOD COUNT (AUTO) 6.7 K/uL (3.6-10.2)
[2020-02-21 06:27] LABS: PHOSPHOROUS 2.2 mg/dL (2.5-4.9); POTASSIUM 4.1 mmol/L (3.5-5.1)
[2020-02-21] MEDS ORDERED: NEUTRA PHOS PACKET PO ONE (07:45)
[2020-02-21] MEDS: DEXAMETHASONE SOD PHOSPHATE 10 MG INJ IV SCH (08:44)
[2020-02-21] MEDS: Z GUARD REMEDY PASTE 57 GM TUBE TOP SCH ×2 (08:46→22:24)
[2020-02-21] MEDS: ENOXAPARIN SODIUM 60 MG/0.6 ML DISP.SYRIN SQ SCH ×2 (08:53→22:18)
[2020-02-21] MEDS: DOXYCYCLINE HYCLATE IV 100 MG in IV DEXTROSE 5% 100 ML IV SCH (08:56)
[2020-02-21 11:55] VITALS: BP 111/46
[2020-02-21 12:38] VITALS: BP 105/60
[2020-02-21 16:20] VITALS: BP 118/55
--- NOTE | 2020-02-21 17:25 | NUR ---
PATIENT IS ALERT, ORIENTED X4, SEEMS VERY COMFORTABLE, HOWEVER ON HIGH FLOW,DESATURATED WHILE AMBULATING WITH PT, SATURATING ABOVE 90S WHILE RESTING, SPOKE TO SON QUESTIONS ANSWERED.
--- NOTE | 2020-02-21 19:24 | NUR ---
AIR MATTRESS PLACED
[2020-02-21 20:05] VITALS: BP 110/54
[2020-02-21] MEDS: DOCUSATE SODIUM 100 MG CAPSULE PO SCH (22:16)
[2020-02-22 00:14] VITALS: BP 122/60
[2020-02-22 04:00] VITALS: BP 124/52
[2020-02-22] MEDS: PANTOPRAZOLE SODIUM 40 MG TABLET.DR PO SCH (06:21)
--- NOTE | 2020-02-22 06:47 | NUR ---
Patient awake ,alert and able to make needs known.No c/o pain , no acute distress noted.Slept well .On High flow oxygen at 40 % saturating well at 96 %.Kelley catheter in place draining well.Midline on right upper arm 20 g patent and intact. Continue on isolation for covid.Will continue to monitor.
[2020-02-22 06:54] LABS: BASOPHILS % (AUTO) 0.3 % (0.0-2.0); EOSINOPHILS # (AUTO) 0.2 K/uL (0.0-0.7); EOSINOPHILS % (AUTO) 1.9 % (0.0-7.0); HEMATOCRIT 33.9 % (36.7-47.1); HEMOGLOBIN 11.8 g/dL (12.5-16.3); LYMPHOCYTES # (AUTO) 0.8 K/uL (20.0-40.0); LYMPHOCYTES % (AUTO) 9.1 % (20.5-51.5); MEAN CORPUSCULAR HEMOGLOBIN 30.8 uug (23.8-33.4); MEAN CORPUSCULAR HGB CONC 35 g/dL (32.5-36.3); MONOCYTES # (AUTO) 0.3 K/uL (2.0-10.0); NEUTROPHILS # (AUTO) 7.3 K/uL (1.8-8.9); NEUTROPHILS % (AUTO) 84.7 % (38.5-71.5); PLATELET COUNT (AUTO) 112 K/uL (152-348); RED BLOOD CELL COUNT(AUTO) 3.82 MIL/uL (4.06-5.63); WHITE BLOOD COUNT (AUTO) 8.6 K/uL (3.6-10.2)
[2020-02-22 07:16] LABS: CREATININE 0.9 mg/dL (0.6-1.3); PHOSPHOROUS 2.7 mg/dL (2.5-4.9); POTASSIUM 5.1 mmol/L (3.5-5.1)
--- NOTE | 2020-02-22 07:30 | NUR ---
Received patient in bed dozing off intermittently. Patient is on high flow oxygen at 40 L saturating at 94%. Safety precautions in place. Will continue to monitor.
[2020-02-22] MEDS: Z GUARD REMEDY PASTE 57 GM TUBE TOP SCH ×2 (09:04→21:23)
[2020-02-22] MEDS: DEXAMETHASONE SOD PHOSPHATE 10 MG INJ IV SCH (09:04)
[2020-02-22] MEDS: ENOXAPARIN SODIUM 60 MG/0.6 ML DISP.SYRIN SQ SCH ×2 (10:03→21:23)
[2020-02-22 11:19] VITALS: BP 100/51
--- NOTE | 2020-02-22 13:45 | NUR ---
Patient has some dried up blood in his nares bilaterally. cleaned the nares and made MD Dr Perez aware. Will continue to monitor
[2020-02-22] MEDS: ENSURE ENLIVE (VAN) 240 ML LIQUID PO SCH ×2 (14:58→17:14)
[2020-02-22 16:34] VITALS: BP 104/53
--- NOTE | 2020-02-22 19:30 | NUR ---
Received patient lying in bed. AAOx4. In no acute distress. Denies any pain or SOB. HOB kept elevated. O2 sat at 90% on high flow of O2 40% with 100% FiO2. NSR on tele at 72/min. IV site on Left FA and midline on right upper arm intact and patent. COVID precaution initiated. Safety measure initiated and call benitez within reached. Continue to monitor.
--- NOTE | 2020-02-22 19:43 | NUR ---
Patient is resting in bed. No sign of distress noted. Gave all medications as ordered. Safety precautions are in place. Will continue to monitor.
[2020-02-22 20:00] VITALS: BP 114/62
[2020-02-22] MEDS: DOCUSATE SODIUM 100 MG CAPSULE PO SCH (21:28)
[2020-02-23 01:09] VITALS: BP 114/54
[2020-02-23 04:00] VITALS: BP 93/54
[2020-02-23] MEDS: PANTOPRAZOLE SODIUM 40 MG TABLET.DR PO SCH (06:10)
--- NOTE | 2020-02-23 07:03 | NUR ---
AAOx4. In no acute distress. Denies any pain or SOB. O2 sat at 95% on high flow of O2 40% with 100% FiO2. NSR on tele at 65/min. IV site on Left FA and midline on right upper arm intact and patent. needs attended to and met. COVID precaution maintained. Safety measure maintained and call benitez within reached.
[2020-02-23] MEDS: ENSURE ENLIVE (VAN) 240 ML LIQUID PO SCH ×2 (10:18→17:45)
[2020-02-23] MEDS: DEXAMETHASONE SOD PHOSPHATE 10 MG INJ IV SCH (10:18)
[2020-02-23] MEDS: Z GUARD REMEDY PASTE 57 GM TUBE TOP SCH ×2 (10:19→21:31)
[2020-02-23 11:40] VITALS: BP 106/51
[2020-02-23 12:43] LABS: BASOPHILS # (AUTO) 0.1 K/uL (0.0-8.0); EOSINOPHILS # (AUTO) 0.2 K/uL (0.0-0.7); EOSINOPHILS % (AUTO) 1.9 % (0.0-7.0); HEMATOCRIT 35.8 % (36.7-47.1); HEMOGLOBIN 12.1 g/dL (12.5-16.3); LYMPHOCYTES # (AUTO) 0.5 K/uL (20.0-40.0); LYMPHOCYTES % (AUTO) 4.2 % (20.5-51.5); MEAN CORPUSCULAR HGB CONC 34 g/dL (32.5-36.3); MONOCYTES # (AUTO) 0.2 K/uL (2.0-10.0); MONOCYTES % (AUTO) 1.4 % (0.0-11.0); NEUTROPHILS # (AUTO) 10.9 K/uL (1.8-8.9); NEUTROPHILS % (AUTO) 91.5 % (38.5-71.5); PLATELET COUNT (AUTO) 104 K/uL (152-348); RED BLOOD CELL COUNT(AUTO) 4.02 MIL/uL (4.06-5.63); WHITE BLOOD COUNT (AUTO) 11.9 K/uL (3.6-10.2)
[2020-02-23] MEDS: ENOXAPARIN SODIUM 60 MG/0.6 ML DISP.SYRIN SQ SCH ×2 (13:55→21:29)
--- NOTE | 2020-02-23 14:00 | NUR ---
physical therapy was not able to walk pt today, when they dangled his feet at bedside, his O2 saturation dropped to 77%. Made abattoir supervisor aware, will continue to monitor.
[2020-02-23 16:00] VITALS: BP 97/55
--- NOTE | 2020-02-23 19:30 | NUR ---
Received patient lying in bed. AAOx4. In no acute distress. Denies any pain or SOB. O2 sat at 96% on high flow of O2 30% with 100% FiO2. NSR on tele at 65/min. IV site on Left FA and midline on right upper arm intact and patent. COVID precaution maintained. Safety measure maintained and call benitez within reached. Continue to monitor.
--- NOTE | 2020-02-23 19:49 | NUR ---
pt resting in bed, pt denies pain at this time. pt on high flow O2 30L at 100%. medications given as ordered. safety precautions in place. will endorse to oncoming nurse.
[2020-02-23 20:00] VITALS: BP 104/60
[2020-02-23] MEDS: DOCUSATE SODIUM 100 MG CAPSULE PO SCH (21:28)
[2020-02-23] MEDS: IV NORMAL SALINE 250 ML IV PRN (21:30)
[2020-02-24] VITALS: BP 128/60
[2020-02-24 05:21] VITALS: BP 120/58
--- NOTE | 2020-02-24 06:20 | NUR ---
No adverse event noted through out the shift. Still on high flow O2. Denies any pain or SOB. NSR on tele ta 60/min. Needs attended to and met. Safety measure maintained and call benitez within reached.
--- NOTE | 2020-02-24 08:00 | NUR ---
Received PT in bed, awake AO X 4. PT is cooperative and pleasant. Makes needs known to staff and interacts with staff when engaged to. No acute distress or SOB noted. Vital signs documented. No complain of pain noted at this time. Safety measures provided, call light within reach, bed low and lock. Will continue to monitor.
[2020-02-24] MEDS: ENSURE ENLIVE (VAN) 240 ML LIQUID PO SCH ×2 (10:11→17:05)
[2020-02-24] MEDS: DEXAMETHASONE SOD PHOSPHATE 10 MG INJ IV SCH (10:12)
[2020-02-24] MEDS: Z GUARD REMEDY PASTE 57 GM TUBE TOP SCH ×2 (10:12→21:58)
[2020-02-24] MEDS: ENOXAPARIN SODIUM 60 MG/0.6 ML DISP.SYRIN SQ SCH ×2 (10:13→21:57)
[2020-02-24 11:57] VITALS: BP 101/49
[2020-02-24 16:00] VITALS: BP 112/68
--- NOTE | 2020-02-24 18:43 | NUR ---
PT in bed, awake AO X 4 with safety measures. PT is cooperative and pleasant. No acute distress or SOB noted. Vitals documented. No complain of pain noted at this time. All of the dinner meal was consumed. PT resting in bed. Safety measures provided, call light within reach, bed low and lock. Will endorse to shift manager nurse
[2020-02-24 20:00] VITALS: BP 114/58
[2020-02-24] MEDS: DOCUSATE SODIUM 100 MG CAPSULE PO SCH (21:52)
[2020-02-25 00:54] VITALS: BP 113/62
[2020-02-25 04:00] VITALS: BP 114/58
[2020-02-25] MEDS: PANTOPRAZOLE SODIUM 40 MG TABLET.DR PO SCH ×2 (06:00→07:03)
--- NOTE | 2020-02-25 06:12 | NUR ---
Patient awake,able to make needs known. No s/s of distress noted.On high flow at 30LPM.Compliant with medication and care.Midline on Right upper arm patent an intact.Slept well through out the night. Call light with in reach. Will endorse to oncoming shift.
[2020-02-25 06:54] LABS: BASOPHILS % (AUTO) 0.1 % (0.0-2.0); EOSINOPHILS # (AUTO) 0.2 K/uL (0.0-0.7); EOSINOPHILS % (AUTO) 2.5 % (0.0-7.0); HEMATOCRIT 32.2 % (36.7-47.1); HEMOGLOBIN 10.8 g/dL (12.5-16.3); LYMPHOCYTES # (AUTO) 0.8 K/uL (20.0-40.0); LYMPHOCYTES % (AUTO) 9.1 % (20.5-51.5); MEAN CORPUSCULAR HEMOGLOBIN 30.1 uug (23.8-33.4); MEAN CORPUSCULAR HGB CONC 34 g/dL (32.5-36.3); MEAN CORPUSCULAR VOLUME 89.7 fL (73.0-96.2); MONOCYTES # (AUTO) 0.2 K/uL (2.0-10.0); MONOCYTES % (AUTO) 2.2 % (0.0-11.0); NEUTROPHILS # (AUTO) 7.4 K/uL (1.8-8.9); NEUTROPHILS % (AUTO) 86.1 % (38.5-71.5); PLATELET COUNT (AUTO) 104 K/uL (152-348); WHITE BLOOD COUNT (AUTO) 8.6 K/uL (3.6-10.2)
[2020-02-25 07:32] LABS: BILIRUBIN,DIRECT 0.2 mg/dL (0.0-0.2); BILIRUBIN,TOTAL 0.5 mg/dL (0.2-1.0); CREATININE 0.8 mg/dL (0.6-1.3); MAGNESIUM 1.7 mg/dL (1.8-2.4); PHOSPHOROUS 2.6 mg/dL (2.5-4.9); POTASSIUM 4.1 mmol/L (3.5-5.1); TOTAL PROTEIN, SERUM 4.7 g/dL (6.4-8.2)
[2020-02-25] MEDS: ENOXAPARIN SODIUM 60 MG/0.6 ML DISP.SYRIN SQ SCH ×2 (08:55→20:33)
[2020-02-25] MEDS: ENSURE ENLIVE (VAN) 240 ML LIQUID PO SCH ×2 (08:55→17:24)
[2020-02-25] MEDS: Z GUARD REMEDY PASTE 57 GM TUBE TOP SCH ×2 (08:55→20:33)
[2020-02-25] MEDS ORDERED: MAGNESIUM OXIDE 400 MG TABLET PO ONE (09:00)
[2020-02-25 11:14] VITALS: BP 97/60
[2020-02-25 15:26] VITALS: BP 112/64
[2020-02-25] MEDS: DOCUSATE SODIUM 100 MG CAPSULE PO SCH (20:32)
[2020-02-25 20:59] VITALS: BP 113/60
[2020-02-26 01:42] VITALS: BP 132/58
[2020-02-26 05:16] VITALS: BP 132/63
[2020-02-26] MEDS: PANTOPRAZOLE SODIUM 40 MG TABLET.DR PO SCH (06:00)
--- NOTE | 2020-02-26 06:56 | NUR ---
PATIENT SLEPT INTERMITTENTLY THROUGHOUT THE NIGHT. VSS. WEINBERG CATHETER PATENT AND DRAINING WELL. DENIES SOB OR PAIN AT THIS TIME. SAFETY PRECAUTIONS IN PLACE. ALL NEEDS MET.
--- NOTE | 2020-02-26 07:00 | NUR ---
Patient awake alert and oriented x 4, able to make needs known. No s/s of distress noted. On high flow at 30LPM via NC saturating 94%. With Left forearm IV access and Right upper arm midline, both patent. Instructed patient to use call light when in need of assistance. Safety ensured at all times. Will continue to monitor.
[2020-02-26] MEDS: ENOXAPARIN SODIUM 60 MG/0.6 ML DISP.SYRIN SQ SCH ×2 (09:48→21:55)
[2020-02-26] MEDS: ENSURE ENLIVE (VAN) 240 ML LIQUID PO SCH ×2 (09:48→17:21)
[2020-02-26] MEDS: Z GUARD REMEDY PASTE 57 GM TUBE TOP SCH ×2 (09:49→21:55)
[2020-02-26 11:10] VITALS: BP 126/67
[2020-02-26 11:24] LABS: BASOPHILS % (AUTO) 0.4 % (0.0-2.0); EOSINOPHILS # (AUTO) 0.2 K/uL (0.0-0.7); EOSINOPHILS % (AUTO) 2.4 % (0.0-7.0); HEMOGLOBIN 11.6 g/dL (12.5-16.3); LYMPHOCYTES # (AUTO) 0.5 K/uL (20.0-40.0); LYMPHOCYTES % (AUTO) 5.4 % (20.5-51.5); MEAN CORPUSCULAR HEMOGLOBIN 29.9 uug (23.8-33.4); MEAN CORPUSCULAR HGB CONC 33 g/dL (32.5-36.3); MEAN CORPUSCULAR VOLUME 90.4 fL (73.0-96.2); MONOCYTES # (AUTO) 0.3 K/uL (2.0-10.0); MONOCYTES % (AUTO) 2.9 % (0.0-11.0); NEUTROPHILS # (AUTO) 8.2 K/uL (1.8-8.9); NEUTROPHILS % (AUTO) 88.9 % (38.5-71.5); PLATELET COUNT (AUTO) 115 K/uL (152-348); RED BLOOD CELL COUNT(AUTO) 3.87 MIL/uL (4.06-5.63); WHITE BLOOD COUNT (AUTO) 9.2 K/uL (3.6-10.2)
[2020-02-26 11:35] LABS: CREATININE 0.8 mg/dL (0.6-1.3); POTASSIUM 4.2 mmol/L (3.5-5.1)
[2020-02-26 15:29] VITALS: BP 90/50
--- NOTE | 2020-02-26 19:00 | NUR ---
Patient laying in bed comfortably, no s/s of respiratory distress. Patient is on simple mask at 5LPM saturating 100%. Both IV access patent. All medications tolerated well. All needs attended. Will endorse to instrument lens generator.
[2020-02-26] MEDS: DOCUSATE SODIUM 100 MG CAPSULE PO SCH (21:15)
[2020-02-26 21:26] VITALS: BP 97/48
--- NOTE | 2020-02-26 23:34 | NUR ---
Received pt resting in bed and watching tv. AAOx4, Cuban speaking, able to make needs known. On 10L O2 via simple mask. No acute distress noted. Denies pain/ discomfort. Due meds given as ordered. Safety measures maintained. Call light and personal items within reach. Will continue to monitor.
[2020-02-27 01:15] VITALS: BP 141/59
[2020-02-27] MEDS: PANTOPRAZOLE SODIUM 40 MG TABLET.DR PO SCH (06:14)
[2020-02-27 06:48] VITALS: BP 110/57
[2020-02-27 09:13] LABS: BASOPHILS % (AUTO) 0.5 % (0.0-2.0); EOSINOPHILS # (AUTO) 0.2 K/uL (0.0-0.7); EOSINOPHILS % (AUTO) 2.5 % (0.0-7.0); HEMATOCRIT 36.4 % (36.7-47.1); HEMOGLOBIN 12.3 g/dL (12.5-16.3); LYMPHOCYTES # (AUTO) 0.5 K/uL (20.0-40.0); LYMPHOCYTES % (AUTO) 5.4 % (20.5-51.5); MEAN CORPUSCULAR HEMOGLOBIN 30.4 uug (23.8-33.4); MEAN CORPUSCULAR HGB CONC 34 g/dL (32.5-36.3); MEAN CORPUSCULAR VOLUME 89.9 fL (73.0-96.2); MONOCYTES # (AUTO) 0.3 K/uL (2.0-10.0); MONOCYTES % (AUTO) 3.1 % (0.0-11.0); NEUTROPHILS # (AUTO) 8.1 K/uL (1.8-8.9); NEUTROPHILS % (AUTO) 88.5 % (38.5-71.5); PLATELET COUNT (AUTO) 119 K/uL (152-348); RED BLOOD CELL COUNT(AUTO) 4.05 MIL/uL (4.06-5.63); WHITE BLOOD COUNT (AUTO) 9.1 K/uL (3.6-10.2)
[2020-02-27] MEDS: Z GUARD REMEDY PASTE 57 GM TUBE TOP SCH ×2 (09:24→22:30)
[2020-02-27] MEDS: ENOXAPARIN SODIUM 60 MG/0.6 ML DISP.SYRIN SQ SCH ×2 (09:24→22:29)
[2020-02-27] MEDS: ENSURE ENLIVE (VAN) 240 ML LIQUID PO SCH ×2 (09:25→16:46)
[2020-02-27 09:47] LABS: CREATININE 0.8 mg/dL (0.6-1.3); PHOSPHOROUS 3.5 mg/dL (2.5-4.9); POTASSIUM 4.7 mmol/L (3.5-5.1)
[2020-02-27 12:00] VITALS: BP 120/66
[2020-02-27 16:00] VITALS: BP 110/55
--- NOTE | 2020-02-27 18:30 | NUR ---
RT attempted to taper 02 simple mask pt was not able to tolerate. Kept pt on 12 liter simple mask with sat of 95%
[2020-02-27 20:00] VITALS: BP 115/58
[2020-02-27] MEDS: DOCUSATE SODIUM 100 MG CAPSULE PO SCH (21:00)
--- NOTE | 2020-02-27 21:12 | NUR ---
Patient awake able to make needs known. On 12 LPM via simple mask with 93 % .Kelley catheter in place .Draining well with yellow output.Compliant with medication.Midline on right upper arm intact and peripheral line on left FA 20 .Proper PPe strictly observed for covid.will continue to monitor.VSS
[2020-02-28] VITALS: BP 111/54
[2020-02-28 04:00] VITALS: BP 104/59
[2020-02-28] MEDS: PANTOPRAZOLE SODIUM 40 MG TABLET.DR PO SCH (06:08)
[2020-02-28] MEDS: ENSURE ENLIVE (VAN) 240 ML LIQUID PO SCH ×2 (08:38→17:02)
[2020-02-28] MEDS: ENOXAPARIN SODIUM 60 MG/0.6 ML DISP.SYRIN SQ SCH ×2 (08:43→21:15)
[2020-02-28] MEDS: Z GUARD REMEDY PASTE 57 GM TUBE TOP SCH ×2 (09:39→21:42)
--- NOTE | 2020-02-28 11:33 | NUR ---
Pt was not able to tolerate physical therapy session. Pt with simple mask @12liters desaturated to 82% while at Edge of bed during physical therapy session. Kept pt back in bed.
[2020-02-28 11:50] VITALS: BP 103/51
[2020-02-28 15:46] VITALS: BP 120/61
[2020-02-28 20:45] VITALS: BP 111/64
[2020-02-28] MEDS: DOCUSATE SODIUM 100 MG CAPSULE PO SCH (21:42)
[2020-02-29 00:55] VITALS: BP 118/56
[2020-02-29 04:00] VITALS: BP 104/68
[2020-02-29] MEDS: PANTOPRAZOLE SODIUM 40 MG TABLET.DR PO SCH (06:08)
[2020-02-29] MEDS: ENOXAPARIN SODIUM 60 MG/0.6 ML DISP.SYRIN SQ SCH ×2 (08:46→21:37)
[2020-02-29] MEDS: ENSURE ENLIVE (VAN) 240 ML LIQUID PO SCH ×2 (08:46→17:27)
[2020-02-29] MEDS: Z GUARD REMEDY PASTE 57 GM TUBE TOP SCH ×2 (08:50→20:46)
[2020-02-29 11:41] VITALS: BP 107/55
--- NOTE | 2020-02-29 11:56 | NUR ---
Patient unable to tolerate physical therapy session. On simple mask at 12 Lpm desaturated to 77% while sitting at edge of bed. Kept in bed.
[2020-02-29 16:00] VITALS: BP 103/59
[2020-02-29 20:00] VITALS: BP 111/55
[2020-02-29] MEDS: DOCUSATE SODIUM 100 MG CAPSULE PO SCH (21:20)
[2020-03-01] VITALS: BP 118/74
[2020-03-01 04:00] VITALS: BP 96/58
[2020-03-01] MEDS: PANTOPRAZOLE SODIUM 40 MG TABLET.DR PO SCH (06:02)
[2020-03-01 06:58] LABS: BASOPHILS % (AUTO) 0.4 % (0.0-2.0); EOSINOPHILS # (AUTO) 0.2 K/uL (0.0-0.7); EOSINOPHILS % (AUTO) 1.9 % (0.0-7.0); HEMATOCRIT 37.6 % (36.7-47.1); HEMOGLOBIN 12.8 g/dL (12.5-16.3); LYMPHOCYTES # (AUTO) 0.5 K/uL (20.0-40.0); LYMPHOCYTES % (AUTO) 5.5 % (20.5-51.5); MEAN CORPUSCULAR HEMOGLOBIN 30.8 uug (23.8-33.4); MEAN CORPUSCULAR HGB CONC 34 g/dL (32.5-36.3); MEAN CORPUSCULAR VOLUME 90.6 fL (73.0-96.2); MONOCYTES # (AUTO) 0.4 K/uL (2.0-10.0); MONOCYTES % (AUTO) 4.6 % (0.0-11.0); NEUTROPHILS # (AUTO) 7.5 K/uL (1.8-8.9); NEUTROPHILS % (AUTO) 87.6 % (38.5-71.5); PLATELET COUNT (AUTO) 145 K/uL (152-348); RED BLOOD CELL COUNT(AUTO) 4.15 MIL/uL (4.06-5.63); WHITE BLOOD COUNT (AUTO) 8.6 K/uL (3.6-10.2)
[2020-03-01 07:39] LABS: PHOSPHOROUS 3.8 mg/dL (2.5-4.9); POTASSIUM 4.7 mmol/L (3.5-5.1)
[2020-03-01] MEDS: ENSURE ENLIVE (VAN) 240 ML LIQUID PO SCH ×2 (08:50→17:38)
[2020-03-01] MEDS: ENOXAPARIN SODIUM 60 MG/0.6 ML DISP.SYRIN SQ SCH ×2 (08:52→21:04)
[2020-03-01] MEDS: Z GUARD REMEDY PASTE 57 GM TUBE TOP SCH ×2 (09:04→21:10)
--- NOTE | 2020-03-01 10:36 | NUR ---
Patient unable to tolerate physical therapy session. On simple mask at 12Lpm desaturated to 81% while sitting on edge of bed. Kept patient back on bed.
[2020-03-01 12:00] VITALS: BP 104/53
[2020-03-01 16:00] VITALS: BP 104/56
--- NOTE | 2020-03-01 18:54 | NUR ---
Alert, oriented and very pleasant. Denies pain or discomfort. O2 noted at 98% on 12Lpm simple mask. Kept comfortable.
--- NOTE | 2020-03-01 19:55 | NUR ---
Received patient in bed awake able to make needs known.Argentine speaking.No acute distress noted.On 12 LPM simple mask 92%.Due meds given.Continue safety measures and isolation for covid. Call light with in reach .will continue to monitor.VSS
[2020-03-01 20:06] VITALS: BP 113/64
[2020-03-01] MEDS: DOCUSATE SODIUM 100 MG CAPSULE PO SCH (21:05)
[2020-03-02 04:24] VITALS: BP 102/58
[2020-03-02] MEDS: PANTOPRAZOLE SODIUM 40 MG TABLET.DR PO SCH (06:14)
[2020-03-02 06:20] VITALS: BP 102/55
[2020-03-02 08:02] LABS: BASOPHILS % (AUTO) 0.4 % (0.0-2.0); EOSINOPHILS # (AUTO) 0.3 K/uL (0.0-0.7); HEMATOCRIT 38.3 % (36.7-47.1); HEMOGLOBIN 12.8 g/dL (12.5-16.3); LYMPHOCYTES # (AUTO) 0.5 K/uL (20.0-40.0); LYMPHOCYTES % (AUTO) 6.5 % (20.5-51.5); MEAN CORPUSCULAR HEMOGLOBIN 30.6 uug (23.8-33.4); MEAN CORPUSCULAR HGB CONC 34 g/dL (32.5-36.3); MEAN CORPUSCULAR VOLUME 91.5 fL (73.0-96.2); MONOCYTES # (AUTO) 0.3 K/uL (2.0-10.0); MONOCYTES % (AUTO) 4.8 % (0.0-11.0); NEUTROPHILS # (AUTO) 5.9 K/uL (1.8-8.9); NEUTROPHILS % (AUTO) 84.3 % (38.5-71.5); PLATELET COUNT (AUTO) 143 K/uL (152-348); RED BLOOD CELL COUNT(AUTO) 4.19 MIL/uL (4.06-5.63)
[2020-03-02 08:33] LABS: CREATININE 0.8 mg/dL (0.6-1.3); MAGNESIUM 2.1 mg/dL (1.8-2.4); POTASSIUM 4.3 mmol/L (3.5-5.1)
[2020-03-02] MEDS: ENOXAPARIN SODIUM 60 MG/0.6 ML DISP.SYRIN SQ SCH ×2 (09:08→20:12)
[2020-03-02] MEDS: ENSURE ENLIVE (VAN) 240 ML LIQUID PO SCH ×2 (09:09→17:54)
[2020-03-02] MEDS: Z GUARD REMEDY PASTE 57 GM TUBE TOP SCH ×2 (09:10→20:12)
[2020-03-02 12:02] VITALS: BP 110/45
--- NOTE | 2020-03-02 14:52 | NUR ---
This SW contacted patient's son Terry, , to assess family's needs and concerns. Terry was available and receptive to speaking with this SW. Terry discussed having some questions pertaining to patient's prognosis, length of stay, and physical therapy treatment. SW stated that SW could coordinate with the team, and get back to him regarding some of his questions. Terry expressed agreement and understanding. Discharge plans were also discussed, and Terry stated that it would depend on patient's physical abilities. Terry stated that patient would have to be ambulatory, and able to tend to his toileting and dressing needs in order to return home, since patient's would not be able to assist patient with ADL's. Terry is open to having patient go to a rehab facility before returning home, if necessary, and stated his [facility] be [facility] [place] [facility], and SW stated that SW would coordinate with case management regarding family's preferences. SW to coordinate with interdisciplinary team, and follow-up with Terry regarding above questions/plans.
--- NOTE | 2020-03-02 16:45 | NUR ---
FRANKIE spoke with case reviewer Diego and discussed coordinate of discharge plan for the patient. Diego stated that he will also relay family's requests to the other CM's, and will work with the family to coordinate a safe and proper discharge for the patient.
[2020-03-02 16:46] VITALS: BP 111/55
--- NOTE | 2020-03-02 17:56 | NUR ---
Patient remains alert, oriented x 4, not in any form of distress, on 12LPM via simple mask. He denies any pain or discomfort at this time. Kelley catheter in place and patent draining clear yellow urine. Assisted with his needs promptly. Call light and frequently used items placed within patient's reach. Patient participated with PT with noted desaturation with physical activity. Dr. Woo saw patient given update with no new order. Informed Dr. Perez who saw patient at this time and said to inform RT every time patient goes for physical therapy to bump up oxygen and put patient on non-rebreather mask. Will inform RT and will endorse accordingly to next shift nurse.
[2020-03-02] MEDS: DOCUSATE SODIUM 100 MG CAPSULE PO SCH (20:11)
[2020-03-02 20:24] VITALS: BP 112/49
--- NOTE | 2020-03-02 21:42 | NUR ---
Received pt resting in bed. AAO x4. Turkmen speaking, able to make needs known. On 12L O2 via simple mask, no acute distress noted. Denies pain/ discomfort. Due meds given as ordered. Kelley catheter draining well with yellow colored urine. Safety measures maintained. Call light and personal items within reach. Will continue to monitor.
[2020-03-03 00:27] VITALS: BP 120/57
[2020-03-03 04:24] VITALS: BP 120/62
[2020-03-03 06:27] LABS: BASOPHILS % (AUTO) 0.5 % (0.0-2.0); EOSINOPHILS # (AUTO) 0.3 K/uL (0.0-0.7); EOSINOPHILS % (AUTO) 3.9 % (0.0-7.0); HEMATOCRIT 33.4 % (36.7-47.1); HEMOGLOBIN 11.4 g/dL (12.5-16.3); LYMPHOCYTES # (AUTO) 0.6 K/uL (20.0-40.0); LYMPHOCYTES % (AUTO) 8.7 % (20.5-51.5); MEAN CORPUSCULAR HEMOGLOBIN 31.1 uug (23.8-33.4); MEAN CORPUSCULAR HGB CONC 34 g/dL (32.5-36.3); MEAN CORPUSCULAR VOLUME 90.8 fL (73.0-96.2); MONOCYTES # (AUTO) 0.4 K/uL (2.0-10.0); NEUTROPHILS # (AUTO) 5.5 K/uL (1.8-8.9); NEUTROPHILS % (AUTO) 80.9 % (38.5-71.5); PLATELET COUNT (AUTO) 150 K/uL (152-348); RED BLOOD CELL COUNT(AUTO) 3.68 MIL/uL (4.06-5.63); WHITE BLOOD COUNT (AUTO) 6.8 K/uL (3.6-10.2)
[2020-03-03 06:43] LABS: CREATININE 0.8 mg/dL (0.6-1.3); MAGNESIUM 1.9 mg/dL (1.8-2.4); PHOSPHOROUS 3.6 mg/dL (2.5-4.9); POTASSIUM 4.4 mmol/L (3.5-5.1)
[2020-03-03] MEDS: PANTOPRAZOLE SODIUM 40 MG TABLET.DR PO SCH (06:48)
[2020-03-03] MEDS: APIXABAN 2.5 MG TABLET PO SCH ×2 (08:38→20:52)
[2020-03-03] MEDS: ENSURE ENLIVE (VAN) 240 ML LIQUID PO SCH ×2 (08:38→17:42)
[2020-03-03] MEDS: Z GUARD REMEDY PASTE 57 GM TUBE TOP SCH ×2 (08:39→20:50)
[2020-03-03 12:00] VITALS: BP 149/50
[2020-03-03 16:00] VITALS: BP 140/55
--- NOTE | 2020-03-03 19:30 | NUR ---
Pt received in bed, awake. Denies pain or SOB at this time. On 12L simple mask sating at 95%, tolerating well. SR on monitor. Bed is locked and in lowest position. Call light is within reach. No other issues or concerns at this time.
[2020-03-03 20:06] VITALS: BP 128/57
[2020-03-03] MEDS: DOCUSATE SODIUM 100 MG CAPSULE PO SCH (20:49)
[2020-03-04 00:08] VITALS: BP 106/55
[2020-03-04 05:15] VITALS: BP 107/51
[2020-03-04] MEDS: PANTOPRAZOLE SODIUM 40 MG TABLET.DR PO SCH (06:20)
--- NOTE | 2020-03-04 06:47 | NUR ---
Pt slept throughout the night with no complaints. Denies SOB or chest pain. Titrated O2 to 8L and is tolerating well sating at 98%. SR on monitor. Call light is within reach and bed is locked and in the lowest position. No other issues or concerns at this time. Will endorse to day shift.
--- NOTE | 2020-03-04 07:30 | NUR ---
received report from railroad emergency services manager nurse. patient awake, alert and oriented x4. pt has a right upper midline and a left forearm 20g. Patient has a moncada catheter. O2 via simple mask at 8L saturating at 97%, no signs of distress noted. bed in low and locked position, safety and isolation precautions in place. Will continue to monitor.
[2020-03-04 07:42] LABS: CREATININE 0.8 mg/dL (0.6-1.3); MAGNESIUM 1.9 mg/dL (1.8-2.4); PHOSPHOROUS 3.5 mg/dL (2.5-4.9); POTASSIUM 5.3 mmol/L (3.5-5.1)
[2020-03-04 07:52] LABS: BASOPHILS % (AUTO) 0.7 % (0.0-2.0); EOSINOPHILS # (AUTO) 0.2 K/uL (0.0-0.7); HEMATOCRIT 34.2 % (36.7-47.1); HEMOGLOBIN 11.8 g/dL (12.5-16.3); LYMPHOCYTES # (AUTO) 0.5 K/uL (20.0-40.0); LYMPHOCYTES % (AUTO) 7.7 % (20.5-51.5); MEAN CORPUSCULAR HEMOGLOBIN 31.4 uug (23.8-33.4); MEAN CORPUSCULAR HGB CONC 35 g/dL (32.5-36.3); MEAN CORPUSCULAR VOLUME 90.8 fL (73.0-96.2); MONOCYTES # (AUTO) 0.5 K/uL (2.0-10.0); MONOCYTES % (AUTO) 6.9 % (0.0-11.0); NEUTROPHILS # (AUTO) 5.6 K/uL (1.8-8.9); NEUTROPHILS % (AUTO) 81.7 % (38.5-71.5); PLATELET COUNT (AUTO) 163 K/uL (152-348); RED BLOOD CELL COUNT(AUTO) 3.76 MIL/uL (4.06-5.63); WHITE BLOOD COUNT (AUTO) 6.9 K/uL (3.6-10.2)
[2020-03-04] MEDS ORDERED: SODIUM POLYSTYRENE SULFONATE 15 G/60 ML LIQUID UDC PO ONE (09:45)
[2020-03-04] MEDS: ENSURE ENLIVE (VAN) 240 ML LIQUID PO SCH ×2 (10:22→17:35)
[2020-03-04] MEDS: APIXABAN 2.5 MG TABLET PO SCH ×2 (10:24→20:34)
[2020-03-04] MEDS: Z GUARD REMEDY PASTE 57 GM TUBE TOP SCH ×2 (10:25→20:33)
[2020-03-04 11:45] VITALS: BP 97/51
--- NOTE | 2020-03-04 12:44 | NUR ---
Spoke to family, Ivan (son), gave updates on pt. Will continue to monitor.
[2020-03-04 16:20] VITALS: BP 121/59
--- NOTE | 2020-03-04 18:44 | NUR ---
Patient awake alert and oriented x 4. Patient on O2 via simple mask at 8L, saturating at 98%, no signs of distress noted at this time. Patient on a telemetry monitor, NSR. IV midline on the right upper extremity. Pt. uses moncada, on an alternating air mattress, skin intact. medications given as ordered. COVID isolation and safety precautions in place. Will endorse to oncoming nurse.
[2020-03-04] MEDS: DOCUSATE SODIUM 100 MG CAPSULE PO SCH (20:32)
[2020-03-04 21:30] VITALS: BP 111/57
[2020-03-05 01:18] VITALS: BP 119/63
[2020-03-05] MEDS: PANTOPRAZOLE SODIUM 40 MG TABLET.DR PO SCH (06:14)
[2020-03-05 06:39] VITALS: BP 119/68
[2020-03-05 07:34] LABS: BASOPHILS % (AUTO) 0.1 % (0.0-2.0); EOSINOPHILS # (AUTO) 0.2 K/uL (0.0-0.7); EOSINOPHILS % (AUTO) 2.9 % (0.0-7.0); HEMOGLOBIN 11.5 g/dL (12.5-16.3); LYMPHOCYTES # (AUTO) 0.4 K/uL (20.0-40.0); LYMPHOCYTES % (AUTO) 5.2 % (20.5-51.5); MEAN CORPUSCULAR HEMOGLOBIN 31.6 uug (23.8-33.4); MEAN CORPUSCULAR HGB CONC 35 g/dL (32.5-36.3); MEAN CORPUSCULAR VOLUME 90.9 fL (73.0-96.2); MONOCYTES # (AUTO) 0.3 K/uL (2.0-10.0); MONOCYTES % (AUTO) 4.1 % (0.0-11.0); NEUTROPHILS # (AUTO) 6.1 K/uL (1.8-8.9); NEUTROPHILS % (AUTO) 87.7 % (38.5-71.5); PLATELET COUNT (AUTO) 154 K/uL (152-348); RED BLOOD CELL COUNT(AUTO) 3.63 MIL/uL (4.06-5.63); WHITE BLOOD COUNT (AUTO) 6.9 K/uL (3.6-10.2)
[2020-03-05] MEDS: ENSURE ENLIVE (VAN) 240 ML LIQUID PO SCH ×2 (08:00→17:20)
[2020-03-05 08:26] LABS: CREATININE 0.8 mg/dL (0.6-1.3); MAGNESIUM 1.9 mg/dL (1.8-2.4); PHOSPHOROUS 3.1 mg/dL (2.5-4.9); POTASSIUM 4.3 mmol/L (3.5-5.1)
[2020-03-05] MEDS: APIXABAN 2.5 MG TABLET PO SCH ×2 (09:25→22:05)
[2020-03-05] MEDS: Z GUARD REMEDY PASTE 57 GM TUBE TOP SCH ×2 (09:26→22:05)
[2020-03-05 12:00] VITALS: BP 151/58
[2020-03-05 16:22] VITALS: BP 122/63
--- NOTE | 2020-03-05 16:46 | NUR ---
PT RECEIVED ON 10 LPM SIMPLE O2 MASK WITH SPO2 98%. 6LPM NASAL CANULA TRIED BUT PT COULD NOT MAINTAIN SPO2 GREATER THAN 92%. PT REMAINS ON SIMPLE MASK. WILL CONTINUE TO MONITOR
[2020-03-05] MEDS: DEXAMETHASONE 4 MG TABLET PO SCH (17:20)
[2020-03-05] MEDS: DOCUSATE SODIUM 100 MG CAPSULE PO SCH (21:00)
[2020-03-05 21:06] VITALS: BP 121/62
[2020-03-06 00:32] VITALS: BP 106/66
[2020-03-06 05:07] VITALS: BP 132/76
[2020-03-06 06:28] LABS: BASOPHILS % (AUTO) 0.1 % (0.0-2.0); EOSINOPHILS % (AUTO) 0.1 % (0.0-7.0); HEMOGLOBIN 10.8 g/dL (12.5-16.3); LYMPHOCYTES # (AUTO) 0.3 K/uL (20.0-40.0); LYMPHOCYTES % (AUTO) 4.9 % (20.5-51.5); MEAN CORPUSCULAR HEMOGLOBIN 31.5 uug (23.8-33.4); MEAN CORPUSCULAR HGB CONC 35 g/dL (32.5-36.3); MEAN CORPUSCULAR VOLUME 90.6 fL (73.0-96.2); MONOCYTES # (AUTO) 0.1 K/uL (2.0-10.0); NEUTROPHILS # (AUTO) 5.4 K/uL (1.8-8.9); NEUTROPHILS % (AUTO) 92.9 % (38.5-71.5); PLATELET COUNT (AUTO) 154 K/uL (152-348); RED BLOOD CELL COUNT(AUTO) 3.42 MIL/uL (4.06-5.63); WHITE BLOOD COUNT (AUTO) 5.8 K/uL (3.6-10.2)
[2020-03-06 06:46] LABS: CREATININE 0.8 mg/dL (0.6-1.3); PHOSPHOROUS 4.1 mg/dL (2.5-4.9); POTASSIUM 4.5 mmol/L (3.5-5.1)
[2020-03-06] MEDS: ENSURE ENLIVE (VAN) 240 ML LIQUID PO SCH ×2 (08:00→16:23)
[2020-03-06] MEDS: PANTOPRAZOLE SODIUM 40 MG TABLET.DR PO SCH (09:37)
[2020-03-06] MEDS: Z GUARD REMEDY PASTE 57 GM TUBE TOP SCH ×2 (09:37→22:13)
[2020-03-06] MEDS: DEXAMETHASONE 4 MG TABLET PO SCH (09:37)
[2020-03-06] MEDS: APIXABAN 2.5 MG TABLET PO SCH ×2 (09:39→22:41)
[2020-03-06 11:33] VITALS: BP 124/59
--- NOTE | 2020-03-06 13:27 | NUR ---
PATIENT SEEN AND EXAMINED BY DR HUGHES WITH NEW ORDERS AND NOTED
--- NOTE | 2020-03-06 14:51 | NUR ---
PATIENT SEEN BY DR MING ANGULO AWARE THAT PATIENT DE SATS WITH EXERCISE HE TO INCREASE O2 NEEDED TO LEVEL TO ALLOW FOR PHYSICAL THERAPY.
[2020-03-06 15:54] VITALS: BP 133/58
--- NOTE | 2020-03-06 18:00 | NUR ---
REMAIN ALERT BUT DISORIENTED AT TIMES TENDS TO SCREAM A LOT DEPENDENT FOR ALL ADL HAD A BOWEL MOVEMENT TODAY [facility] REMAIN ON ISOLATION ORDERED WILL CONTINUE TO OBSERVE.
[2020-03-06 20:00] VITALS: BP 113/73
[2020-03-06] MEDS: DOCUSATE SODIUM 100 MG CAPSULE PO SCH (22:13)
[2020-03-06] MEDS ORDERED: APIXABAN 2.5 MG TABLET ONE (22:25)
[2020-03-07 01:04] VITALS: BP 126/57
[2020-03-07 04:30] VITALS: BP 110/54
[2020-03-07] MEDS: PANTOPRAZOLE SODIUM 40 MG TABLET.DR PO SCH (06:14)
--- NOTE | 2020-03-07 06:17 | NUR ---
PATIENT ASLEEP IN BED, SLEPT WELL THROUGHOUT THE NIGHT, ON TEL SR with 1st degree AVB. BED ALARM ON.
[2020-03-07 06:37] LABS: BASOPHILS % (AUTO) 0.1 % (0.0-2.0); EOSINOPHILS % (AUTO) 0.1 % (0.0-7.0); HEMATOCRIT 31.8 % (36.7-47.1); HEMOGLOBIN 11.4 g/dL (12.5-16.3); LYMPHOCYTES # (AUTO) 0.6 K/uL (20.0-40.0); MEAN CORPUSCULAR HEMOGLOBIN 32.1 uug (23.8-33.4); MEAN CORPUSCULAR HGB CONC 36 g/dL (32.5-36.3); MEAN CORPUSCULAR VOLUME 89.9 fL (73.0-96.2); MONOCYTES # (AUTO) 0.6 K/uL (2.0-10.0); MONOCYTES % (AUTO) 6.1 % (0.0-11.0); NEUTROPHILS # (AUTO) 8.2 K/uL (1.8-8.9); NEUTROPHILS % (AUTO) 87.7 % (38.5-71.5); PLATELET COUNT (AUTO) 193 K/uL (152-348); RED BLOOD CELL COUNT(AUTO) 3.54 MIL/uL (4.06-5.63); WHITE BLOOD COUNT (AUTO) 9.3 K/uL (3.6-10.2)
[2020-03-07 07:33] LABS: CREATININE 0.9 mg/dL (0.6-1.3); MAGNESIUM 2.1 mg/dL (1.8-2.4); PHOSPHOROUS 3.4 mg/dL (2.5-4.9)
[2020-03-07] MEDS: ENSURE ENLIVE (VAN) 240 ML LIQUID PO SCH ×2 (08:00→16:54)
[2020-03-07] MEDS: Z GUARD REMEDY PASTE 57 GM TUBE TOP SCH ×2 (09:45→20:43)
[2020-03-07] MEDS: APIXABAN 2.5 MG TABLET PO SCH ×2 (09:51→20:44)
[2020-03-07] MEDS: DEXAMETHASONE 4 MG TABLET PO SCH (10:01)
--- NOTE | 2020-03-07 10:37 | NUR ---
RECEIVED IN BED AWAKE ALERT SOMEWHAT QUIET AND COOPERATIVE DUE MEDICATIONS GIVEN AND TOLERATED WELL ABLE TO MAKE NEEDS KNOWN ON O2 AT 8L/M ATTEMPTING TO TITRATE DOWN WILL RECHECK HIS SATS TO ENSURE THAT ITS ADEQUATE.
--- NOTE | 2020-03-07 10:46 | NUR ---
PATIENT WAS SEEN BY THE PHYSICAL THERAPY STANDING WITH EXERCISES SAT WAS 90 PERCENT WILL RECHECK WHILE AT REST WITH THE O2 AT 8L
[2020-03-07 11:41] VITALS: BP 112/60
[2020-03-07 16:04] VITALS: BP 100/53
[2020-03-07 20:15] VITALS: BP 100/53
[2020-03-07] MEDS: DOCUSATE SODIUM 100 MG CAPSULE PO SCH (20:43)
--- NOTE | 2020-03-07 21:24 | NUR ---
PATIENT SEEN AND EXAMINED BY DR DANIELS WITH NEW ORDERS AND NOTED.RESTING IN BED WITH O2 AT 8L/M BY MASK WITH NO SHORTNESS OF BREATH AT THIS TIME.ALERT AND COOPERATIVE DUE MEDICATIONS GIVEN REMAIN ON ELIQUIS ORDERED WITH NO S/S OF BLEEDING AT THIS TIME CALL LIGHTS AND PERSONAL BELONGINGS ARE WITHIN EASY REACH REMAIN ON COVID ISOLATION AND PRECAUTION WILL CONTINUE TO OBSERVE.
[2020-03-08 00:24] VITALS: BP 123/66
[2020-03-08 04:27] VITALS: BP 110/59
--- NOTE | 2020-03-08 06:11 | NUR ---
PT SLEPT INTERMITTENTLY. PRESCRIBED MEDICATION GIVEN AND PT TOLERATED IT WELL. PT ON SINUS RHYTHM. PT IN NO ACUTE RESPIRATORY DISTRESS. PT TURNED AND REPOSITIONED. PT ON FIRST STEP MATTRESS. SAFETY AND COMFORT PROVIDED. ALL NEEDS ARE MET. WILL ENDORSE TO INCOMING NURSE FOR CONTINUITY OF CARE.
[2020-03-08 06:20] LABS: BASOPHILS % (AUTO) 0.2 % (0.0-2.0); EOSINOPHILS % (AUTO) 0.5 % (0.0-7.0); HEMATOCRIT 28.4 % (36.7-47.1); LYMPHOCYTES # (AUTO) 0.7 K/uL (20.0-40.0); LYMPHOCYTES % (AUTO) 11.1 % (20.5-51.5); MEAN CORPUSCULAR HEMOGLOBIN 31.9 uug (23.8-33.4); MEAN CORPUSCULAR HGB CONC 35 g/dL (32.5-36.3); MEAN CORPUSCULAR VOLUME 90.4 fL (73.0-96.2); MONOCYTES # (AUTO) 0.5 K/uL (2.0-10.0); MONOCYTES % (AUTO) 8.9 % (0.0-11.0); NEUTROPHILS # (AUTO) 4.8 K/uL (1.8-8.9); NEUTROPHILS % (AUTO) 79.3 % (38.5-71.5); PLATELET COUNT (AUTO) 172 K/uL (152-348); RED BLOOD CELL COUNT(AUTO) 3.14 MIL/uL (4.06-5.63); WHITE BLOOD COUNT (AUTO) 6.1 K/uL (3.6-10.2)
[2020-03-08 06:34] LABS: BILIRUBIN,TOTAL 0.4 mg/dL (0.2-1.0); CREATININE 0.8 mg/dL (0.6-1.3); PHOSPHOROUS 3.5 mg/dL (2.5-4.9); POTASSIUM 4.4 mmol/L (3.5-5.1); TOTAL PROTEIN, SERUM 5.5 g/dL (6.4-8.2)
[2020-03-08] MEDS: PANTOPRAZOLE SODIUM 40 MG TABLET.DR PO SCH (06:43)
[2020-03-08] MEDS: DEXAMETHASONE 4 MG TABLET PO SCH (08:32)
[2020-03-08] MEDS: APIXABAN 2.5 MG TABLET PO SCH ×2 (08:33→20:43)
[2020-03-08] MEDS: ENSURE ENLIVE (VAN) 240 ML LIQUID PO SCH ×2 (08:34→17:07)
[2020-03-08] MEDS: Z GUARD REMEDY PASTE 57 GM TUBE TOP SCH ×2 (08:34→20:44)
[2020-03-08 12:30] VITALS: BP 108/53
--- NOTE | 2020-03-08 13:00 | NUR ---
PATIENT SEEN BY THE PHYSICAL THERAPIST FOR THERAPEUTIC EXERCISES WAS REPORTED THAT PATIENT DESATS TO 80 WHEN THEY STOOD HIM UP BUT THEN UP TO 90 HE WENT BACK INTO BED .SATS RANGED FROM 91-93 PERCENT WHILE IN BED ON 8L/M NO SOB AT THIS TIME WILL CONTINUE TO OBSERVE.
[2020-03-08 16:00] VITALS: BP 120/63
--- NOTE | 2020-03-08 18:00 | NUR ---
PATIENT IS RESTING WITH O2 BY MASK AT 8L/M WITH NO SHORTNESS OF BREATH WAS SEEN BY DR LAI WITH NO NEW ORDERS AT THIS TIME WILL CONTINUE TO OBSERVE.
[2020-03-08 20:21] VITALS: BP 104/63
[2020-03-08] MEDS: DOCUSATE SODIUM 100 MG CAPSULE PO SCH (20:43)
--- NOTE | 2020-03-08 21:00 | NUR ---
Received patient resting in bed. AAOx2-3. No s/s of acute distress noted at this time. Pt on 8L NC with O2 @ 96%. Pt denies SOB and pain. Kelley intact draining via gravity. Safety and isolation precautions in place.
[2020-03-09 00:21] VITALS: BP 118/57
[2020-03-09 04:21] VITALS: BP 109/51
[2020-03-09] MEDS: PANTOPRAZOLE SODIUM 40 MG TABLET.DR PO SCH (06:04)
--- NOTE | 2020-03-09 06:58 | NUR ---
Pt resting. Titrated down to 6L NC with O2 @ 94-96%. Pt tolerating well denies SOB at this time. Kelley patent and draining via gravity. BECCA midline and Left FA 20G patent and intact. Safety measures and isolation precautions in place.
[2020-03-09 08:01] LABS: BASOPHILS % (AUTO) 0.1 % (0.0-2.0); EOSINOPHILS # (AUTO) 0.1 K/uL (0.0-0.7); EOSINOPHILS % (AUTO) 1.3 % (0.0-7.0); HEMATOCRIT 32.5 % (36.7-47.1); HEMOGLOBIN 11.3 g/dL (12.5-16.3); LYMPHOCYTES # (AUTO) 0.8 K/uL (20.0-40.0); LYMPHOCYTES % (AUTO) 9.6 % (20.5-51.5); MEAN CORPUSCULAR HEMOGLOBIN 31.4 uug (23.8-33.4); MEAN CORPUSCULAR HGB CONC 35 g/dL (32.5-36.3); MEAN CORPUSCULAR VOLUME 90.3 fL (73.0-96.2); MONOCYTES # (AUTO) 0.6 K/uL (2.0-10.0); MONOCYTES % (AUTO) 7.7 % (0.0-11.0); NEUTROPHILS # (AUTO) 6.6 K/uL (1.8-8.9); NEUTROPHILS % (AUTO) 81.3 % (38.5-71.5); PLATELET COUNT (AUTO) 203 K/uL (152-348); WHITE BLOOD COUNT (AUTO) 8.1 K/uL (3.6-10.2)
[2020-03-09 08:41] LABS: CREATININE 0.9 mg/dL (0.6-1.3); PHOSPHOROUS 3.5 mg/dL (2.5-4.9); POTASSIUM 4.8 mmol/L (3.5-5.1)
[2020-03-09] MEDS: DEXAMETHASONE 4 MG TABLET PO SCH (09:12)
[2020-03-09] MEDS: Z GUARD REMEDY PASTE 57 GM TUBE TOP SCH ×2 (09:13→21:45)
[2020-03-09] MEDS: APIXABAN 2.5 MG TABLET PO SCH ×2 (09:13→21:46)
[2020-03-09] MEDS: ENSURE ENLIVE (VAN) 240 ML LIQUID PO SCH ×2 (09:14→18:14)
[2020-03-09 12:00] VITALS: BP 123/61
[2020-03-09 16:00] VITALS: BP 141/66
--- NOTE | 2020-03-09 18:45 | NUR ---
Patient remains alert, oriented x 4, not in any form of distress, 6LPM via NC. He denies any pain or discomfort. Kelley catheter in place and patent, draining clear yellow urine. Compliant with medications and tolerated well. Patient participated with PT with noted episode of desaturation. Needs attended to promptly. Call light and frequently used items placed within patient's reach. Will continue to monitor and will endorse accordingly.
[2020-03-09 20:00] VITALS: BP 109/58
[2020-03-09] MEDS: ACETAMINOPHEN 325 MG TABLET PO PRN (21:45)
[2020-03-09] MEDS: DOCUSATE SODIUM 100 MG CAPSULE PO SCH (21:45)
[2020-03-10] VITALS: BP 114/64
[2020-03-10 04:00] VITALS: BP 112/57
[2020-03-10] MEDS: PANTOPRAZOLE SODIUM 40 MG TABLET.DR PO SCH (06:36)
[2020-03-10] MEDS: ENSURE ENLIVE (VAN) 240 ML LIQUID PO SCH ×2 (08:31→17:23)
[2020-03-10] MEDS: DEXAMETHASONE 4 MG TABLET PO SCH (08:32)
[2020-03-10] MEDS: APIXABAN 2.5 MG TABLET PO SCH ×2 (08:34→20:32)
[2020-03-10] MEDS: Z GUARD REMEDY PASTE 57 GM TUBE TOP SCH ×2 (08:35→20:32)
--- NOTE | 2020-03-10 09:30 | NUR ---
AWAKE & IN GOOD SPIRITS. PLESANT & COMPLIANT.
[2020-03-10 11:02] VITALS: BP 96/51
--- NOTE | 2020-03-10 11:45 | NUR ---
DR. DANIELS WENT TO SEE PATIENT WHO THREW THE REMOTE AT , BECAUSE CALL LIGHT WAS BROKEN ON THE WHOLE UNIT, & NO ONE ANSWERED HIS CALL. INFORMED KELLEN PATIENT HAD 1200 VS TAKEN RECENTLY, & HAD NO REQUESTS.
--- NOTE | 2020-03-10 13:30 | NUR ---
REFUSED LUNCH. SANDWICH ORDERED, & GIVEN TO PATIENT AT 1400.
[2020-03-10 15:02] VITALS: BP 120/65
--- NOTE | 2020-03-10 17:00 | NUR ---
HAS BEEN UPSET MOST OF THE DAY. SON & [id number] AWARE OF THIS OUTRAGEOUS BEHAVIOR. PATIENT STILL UNHAPPY. DR. LAI SPOKE WITH PATIENT.
[2020-03-10 20:12] VITALS: BP 120/64
[2020-03-10] MEDS: DOCUSATE SODIUM 100 MG CAPSULE PO SCH (20:30)
[2020-03-11 00:12] VITALS: BP 115/73
[2020-03-11 04:12] VITALS: BP 137/88
[2020-03-11] MEDS: PANTOPRAZOLE SODIUM 40 MG TABLET.DR PO SCH (06:32)
[2020-03-11 07:02] LABS: EOSINOPHILS # (AUTO) 0.1 K/uL (0.0-0.7); EOSINOPHILS % (AUTO) 0.8 % (0.0-7.0); HEMATOCRIT 31.2 % (36.7-47.1); LYMPHOCYTES # (AUTO) 0.9 K/uL (20.0-40.0); LYMPHOCYTES % (AUTO) 10.6 % (20.5-51.5); MEAN CORPUSCULAR HEMOGLOBIN 31.8 uug (23.8-33.4); MEAN CORPUSCULAR HGB CONC 35 g/dL (32.5-36.3); MEAN CORPUSCULAR VOLUME 90.5 fL (73.0-96.2); MONOCYTES # (AUTO) 0.6 K/uL (2.0-10.0); MONOCYTES % (AUTO) 6.7 % (0.0-11.0); NEUTROPHILS # (AUTO) 6.8 K/uL (1.8-8.9); NEUTROPHILS % (AUTO) 81.9 % (38.5-71.5); PLATELET COUNT (AUTO) 214 K/uL (152-348); RED BLOOD CELL COUNT(AUTO) 3.45 MIL/uL (4.06-5.63); WHITE BLOOD COUNT (AUTO) 8.3 K/uL (3.6-10.2)
[2020-03-11 07:30] LABS: CREATININE 0.8 mg/dL (0.6-1.3); PHOSPHOROUS 3.3 mg/dL (2.5-4.9); POTASSIUM 4.6 mmol/L (3.5-5.1)
[2020-03-11] MEDS: ENSURE ENLIVE (VAN) 240 ML LIQUID PO SCH ×2 (08:14→17:00)
[2020-03-11] MEDS: Z GUARD REMEDY PASTE 57 GM TUBE TOP SCH ×2 (08:49→21:41)
[2020-03-11] MEDS: DEXAMETHASONE 4 MG TABLET PO SCH (08:49)
[2020-03-11] MEDS: APIXABAN 2.5 MG TABLET PO SCH ×2 (08:51→21:36)
[2020-03-11 13:18] VITALS: BP 115/58
--- NOTE | 2020-03-11 15:28 | NUR ---
ORDER FOR BLANCA VIRUS PCR RECEIVED FROM DR DANIELS AND SENT TO THE LAB.
[2020-03-11 17:11] VITALS: BP 124/64
--- NOTE | 2020-03-11 18:00 | NUR ---
REMAIN IN BED WITH O2 BY MASK WITH NO SHORTNESS OF BREATH AT THIS TIME.MADE COMFORTABLE NOT IN DISTRESS AT THIS TIME.
[2020-03-11 20:00] VITALS: BP 115/58
--- NOTE | 2020-03-11 20:00 | NUR ---
RECEIVED PATIENT AWAKE IN BED. A/O X3. ARMENIAN SPEAKING BUT ABLE TO MAKE NEEDS KNOWN. ON TELE SR. DENIES PAIN OR DISCOMFORT. NO RESP. DISTRESS NOTED. ON O2 6L MASK. CALL LIGHT IN REACH. ALL NEEDS ATTENDED. WILL CONTINUE TO MONITOR AND ASSESS.
[2020-03-11] MEDS: DOCUSATE SODIUM 100 MG CAPSULE PO SCH (21:41)
[2020-03-12 00:55] VITALS: BP 109/58
[2020-03-12 04:00] VITALS: BP 117/58
[2020-03-12] MEDS: PANTOPRAZOLE SODIUM 40 MG TABLET.DR PO SCH (06:05)
--- NOTE | 2020-03-12 06:31 | NUR ---
PATIENT ASLEEP IN BED. NO S/S OF ANY SOB OR RESP. DISTRESS. ON TELE SR. VSS. CALL LIGHT IN REACH. ALL NEEDS ATTENDED. WILL CONTINUE TO MONITOR AND ASSESS.
[2020-03-12] MEDS: ENSURE ENLIVE (VAN) 240 ML LIQUID PO SCH ×2 (08:39→16:39)
[2020-03-12] MEDS: APIXABAN 2.5 MG TABLET PO SCH ×2 (08:44→21:58)
[2020-03-12] MEDS: DEXAMETHASONE 4 MG TABLET PO SCH (08:48)
[2020-03-12] MEDS: Z GUARD REMEDY PASTE 57 GM TUBE TOP SCH ×2 (08:49→20:20)
[2020-03-12 12:35] VITALS: BP 102/53
--- NOTE | 2020-03-12 15:00 | NUR ---
ALERT BUT FORGETFUL EASILY AGITATED ALL NEEDS SATISFIED.REMAIN ON O2 AT 6L/M BY MASK WITH NO SOB AT THIS TIME REMAIN ON COVID ISOLATION AND PRECAUTION WITH NO DISTRESS AT THIS TIME WILL CONTINUE TO OBSERVE.
[2020-03-12 16:45] VITALS: BP 114/54
--- NOTE | 2020-03-12 19:46 | NUR ---
RECEIVED PT IN NO ACUTE DISTRESS. IV INTACT. PT ON 6L MASK. RECEIVED A CALL THAT PT PCR IS NEGATIVE. NOTIFY DR. DANIELS REGARDING NEGATIVE PCR RESULT. NO NEW ORDERS FROM THE DOCTOR. SAFETY AND COMFORT PROVIDED. WILL CONTINUE TO MONITOR.
[2020-03-12] MEDS: ACETAMINOPHEN 325 MG TABLET PO PRN (20:19)
[2020-03-12] MEDS: DOCUSATE SODIUM 100 MG CAPSULE PO SCH (20:19)
[2020-03-12 21:08] VITALS: BP 112/70
[2020-03-13 00:55] VITALS: BP 135/65
[2020-03-13 04:36] VITALS: BP 124/64
[2020-03-13] MEDS: PANTOPRAZOLE SODIUM 40 MG TABLET.DR PO SCH (06:31)
[2020-03-13 06:44] LABS: BASOPHILS % (AUTO) 0.2 % (0.0-2.0); EOSINOPHILS # (AUTO) 0.1 K/uL (0.0-0.7); EOSINOPHILS % (AUTO) 1.7 % (0.0-7.0); HEMOGLOBIN 10.6 g/dL (12.5-16.3); LYMPHOCYTES # (AUTO) 0.9 K/uL (20.0-40.0); LYMPHOCYTES % (AUTO) 11.1 % (20.5-51.5); MEAN CORPUSCULAR HGB CONC 34 g/dL (32.5-36.3); MONOCYTES # (AUTO) 0.5 K/uL (2.0-10.0); MONOCYTES % (AUTO) 6.1 % (0.0-11.0); NEUTROPHILS # (AUTO) 6.7 K/uL (1.8-8.9); NEUTROPHILS % (AUTO) 80.9 % (38.5-71.5); PLATELET COUNT (AUTO) 207 K/uL (152-348); RED BLOOD CELL COUNT(AUTO) 3.41 MIL/uL (4.06-5.63); WHITE BLOOD COUNT (AUTO) 8.2 K/uL (3.6-10.2)
--- NOTE | 2020-03-13 06:48 | NUR ---
PT SLEPT INTERMITTENTLY. PT ON 5L OXYGEN . PT TOLERATING IT WELL. PT IN NO ACUTE DISTRESS. IV INTACT. PRESCRIBED MEDICATION GIVEN AND PT TOLERATED IT WELL. PT GIVEN TYLENOL PRN AT 2019H . PT TOLERATED IT WELL. PT ON SINUS RHYTHM .PT HAVE EPISODES THAT HE WILL YELL IF HE WANTS SOMETHING.DR HANSON PT PCR RESULT IS NEGATIVE. SAFETY AND COMFORT PROVIDED. ALL NEEDS ARE MET . WILL ENDORSE TO INCOMING NURSE FOR CONTINUITY OF CARE.
[2020-03-13 06:59] LABS: CREATININE 0.7 mg/dL (0.6-1.3); MAGNESIUM 1.9 mg/dL (1.8-2.4); PHOSPHOROUS 2.9 mg/dL (2.5-4.9); POTASSIUM 4.4 mmol/L (3.5-5.1)
[2020-03-13] MEDS: DEXAMETHASONE 4 MG TABLET PO SCH (08:37)
[2020-03-13] MEDS: ENSURE ENLIVE (VAN) 240 ML LIQUID PO SCH ×2 (08:37→16:03)
[2020-03-13] MEDS: Z GUARD REMEDY PASTE 57 GM TUBE TOP SCH ×2 (08:38→20:44)
[2020-03-13] MEDS: APIXABAN 2.5 MG TABLET PO SCH ×2 (08:55→20:43)
--- NOTE | 2020-03-13 10:00 | NUR ---
PATIENT SEEN BY THE PHYSICAL THERAPY FOR THERAPEUTIC EXERCISES AND THE REPORT IS THAT PATIENT DESATS TO 79 WHEN HE STOOD UP DID TAKE A SOME STEPS FORWARD AND BACKWARDS THEN BACK TO BED AND SAT UP TO 92 AT THIS TIME REMAIN ON O2 BY MASK AT 5L/M.WILL CONTINUE TO OBSERVE.
[2020-03-13 11:44] VITALS: BP 108/56
[2020-03-13 15:57] VITALS: BP 114/59
--- NOTE | 2020-03-13 18:00 | NUR ---
DR LAI HERE SEEN PATIENT WITH NEW ORDERS AND NOTED.
--- NOTE | 2020-03-13 19:30 | NUR ---
RECEIVED PT AWAKE, ALERT AND ORIENTEDX3. PT IN NO ACUTE DISTRESS. PT ON 5L OXYGEN. SAFETY AND COMFORT PROVIDED. WILL CONTINUE TO MONITOR.
[2020-03-13 20:00] VITALS: BP 126/61
[2020-03-13] MEDS: DOCUSATE SODIUM 100 MG CAPSULE PO SCH (20:43)
[2020-03-13] MEDS: ACETAMINOPHEN 325 MG TABLET PO PRN (21:00)
[2020-03-14] VITALS: BP 129/60
[2020-03-14 04:00] VITALS: BP 108/63
[2020-03-14] MEDS: PANTOPRAZOLE SODIUM 40 MG TABLET.DR PO SCH (06:02)
--- NOTE | 2020-03-14 06:19 | NUR ---
PT SLEPT INTERMITTENTLY. PT IN NO ACUTE DISTRESS. PT ON 5L SIMPLE MASK. PRESCRIBED MEDICATION GIVEN AND PT TOLERATED IT WELL. PT ON SINUS RHYTHM . PT GIVEN TYLENOL PRN AT 2100H 650MG . PT TOLERATED IT WELL. PT ON FIRST STEP MATTRESS. PT DOESN'T WANT TO BE REPOSITIONED. TOLD PT HE HAS SACRAL REDNESS THAT RN NEED TO PUT OINTMENT AND MEPILEX. PT REFUSE AND GET MAD. SAFETY AND COMFORT PROVIDED. ALL NEEDS ARE MET. WILL ENDORSE TO INCOMING NURSE FOR CONTINUITY OF CARE.
[2020-03-14] MEDS: ENSURE ENLIVE (VAN) 240 ML LIQUID PO SCH ×2 (08:24→16:21)
[2020-03-14] MEDS: DEXAMETHASONE 4 MG TABLET PO SCH (08:24)
[2020-03-14] MEDS: Z GUARD REMEDY PASTE 57 GM TUBE TOP SCH (08:28)
[2020-03-14] MEDS: APIXABAN 2.5 MG TABLET PO SCH (08:28)
--- NOTE | 2020-03-14 10:00 | NUR ---
SEEN BY THE PHYSICAL THERAPY FOR THERAPEUTIC EXERCISES WHILE IN BED O2 WAS 95-96 AND WHEN PATIENT WAS ASSISTED UP IT DROPPED TO 86 SO SHE INCREASED THE O2 TO 6L/M NAD SAT TIKA UP TO 92 PERCENT ABLE TO STAND AND TAKE FEW STEPS ONCE IN BED O2 WENT NOW BACK DOWN TO 4L AND SAT IS AT 90 WILL CONTINUE TO OBSERVE.
[2020-03-14 12:00] VITALS: BP 104/59
--- NOTE | 2020-03-14 13:00 | NUR ---
ASKED FOR A SECOND SERVING OF TRAY AFTER HE FINISHED THE FIRST TRAY OBTAINED ANOTHER TRAY FROM THE KITCHEN AND HE ATE ABOUT 50 PERCENT OF THE SECOND TRAY GETS EASILY ANNOYED AND UPSET ABLE TO MAKE SIMPLE NEEDS KNOWN O2 IS AT 4L/M WITH NO SOB AT THIS TIME SATS AT 92-93 MADE COMFORTABLE WILL CONTINUE TO OBSERVE.
[2020-03-14 16:00] VITALS: BP 117/62
--- NOTE | 2020-03-14 16:30 | NUR ---
SPOKE TO DIPAK THE PROVIDER ENROLLMENT SPECIALIST STATED THAT PATIENTS SON ALREADY SPOKE WITH DR REN AND THAT HE HAS AGREED TO SEND HIS DAD TO [facility] TODAY.PATIENT NOTIFIED AND HE STATED THAT HIS SON ALREADY TOLD HIM
--- NOTE | 2020-03-14 17:00 | NUR ---
CALLED AND SPOKE WITH DR REN RE DISCHARGE SUMMARY STATED WILL COMPLETE SOON BUT ALSO STATED TO COMPLETE A TMS AND CONTINUE EVERYTHING STATED TO ALSO LEAVE THE MIDLINE AND THE WEINBERG IN PLACE.
--- NOTE | 2020-03-14 17:46 | NUR ---
CALLED [facility] AND REPORT GIVEN TO HARINDER FOR CONTINUING CARE.
[2020-03-14] MEDS ORDERED: DOCU100C36 PO (17:52)
[2020-03-14] MEDS ORDERED: APIX2.5T PO (17:52)
[2020-03-14] MEDS ORDERED: DEXA4TAB2 PO (17:52)
[2020-03-14] MEDS ORDERED: PANT40TA2 PO (17:52)
[2020-03-14] MEDS ORDERED: ALBU8HFA4 IH (17:52)
--- NOTE | 2020-03-14 18:52 | NUR ---
[facility] HERE REPORT GIVEN TO THEM FOR CONTINUING CARE PATIENT DISCHARGED IN SATISFACTORY CONDITION WITH ALL OF HIS PERSONAL BELONGINGS WITH MIDLINE INTACT AND WEINBERG CATHETER.
== END 2020-03-14 19:03 | DRG 871 ==
LOC: ER 17:03 → TRANSITION 02-13 00:08 → CCU 02-17 11:30 → TELE3 02-20 14:09 → TELE 03-06 17:27
PROVIDERS: ADMIT Registered Nurse; ATTEND Internal Medicine
PROC: XW033E5 Introduction of Remdesivir Anti-infective into Peripheral Vein, Percutaneous Approach, New Technology Group 5 (ICD-10-PCS; principal; 2020-02-14)
PROC: XW033H5 Introduction of Tocilizumab into Peripheral Vein, Percutaneous Approach, New Technology Group 5 (ICD-10-PCS; 2020-02-16)
PROC: 5A09357 Assistance with Respiratory Ventilation, Less than 24 Consecutive Hours, Continuous Positive Airway Pressure (ICD-10-PCS; 2020-02-18)
PROC: 05HY33Z Insertion of Infusion Device into Upper Vein, Percutaneous Approach (ICD-10-PCS; 2020-02-20)
DX: A41.89 Other specified sepsis (principal); R65.21 Severe sepsis with septic shock; U07.1 COVID-19; J96.01 Acute respiratory failure with hypoxia; J12.82 Pneumonia due to coronavirus disease 2019; E43 Unspecified severe protein-calorie malnutrition; I26.99 Other pulmonary embolism without acute cor pulmonale; N17.0 Acute kidney failure with tubular necrosis; I82.411 Acute embolism and thrombosis of right femoral vein; I82.441 Acute embolism and thrombosis of right tibial vein; I82.432 Acute embolism and thrombosis of left popliteal vein; D68.59 Other primary thrombophilia; E87.1 Hypo-osmolality and hyponatremia; G93.40 Encephalopathy, unspecified; I13.0 Hypertensive heart and chronic kidney disease with heart failure and stage 1 through stage 4 chronic kidney disease, or unspecified chronic kidney disease; D63.8 Anemia in other chronic diseases classified elsewhere; D69.6 Thrombocytopenia, unspecified; E87.5 Hyperkalemia; N18.2 Chronic kidney disease, stage 2 (mild); Z87.891 Personal history of nicotine dependence; I50.9 Heart failure, unspecified
CPT/HCPCS: 36415; 36600; 70030-TC; 71045; 71275; 83605; 83615; 83735; 84100; 84443; 85025; 85610; 85730; 86140; 86480; 87040; 87086; 87328; 93005; 94660; A4217; A4663; G0378; J0456; J0692; J0696; J1100; J1200; J1644; J1650; J2405; J3262; J3490; J3535; J7030; J7040; J7050; J7060; J8540; Q9967; U0003